=== PATIENT | male | born 1975 | race Caucasian/White ===

== ENCOUNTER → 2018-09-03 16:21 | Outpatient (CLI) | payer OTHER, SELFPAY ==
--- NOTE | 2018-09-03 16:26 | DI.RAD.S_ITS ---
PROCEDURE: XR HAND RT MIN 3V INDICATIONS: RIGHT HAND SWELLING/ BRUISING POST TRAUMA TECHNIQUE: 3 views of the hand(s) acquired. COMPARISON: None. FINDINGS: Bones: There is a subacute appearing appearance of slightly angulated distal fifth metacarpal fracture. Old fracture is noted within the fifth proximal phalanx. Soft tissues: No suspicious soft tissue calcifications. IMPRESSION: Mildly angulated distal fifth metacarpal fracture as above. Dictated by: Naya Powell M.D. on 09/03/2018 at 17:08 Approved by: Naya Powell M.D. on 09/03/2018 at 17:08
== END ==
PROVIDERS: PCP Family Medicine; Visit Provider Family Medicine
DX: S62.396A Other fracture of fifth metacarpal bone, right hand, initial encounter for closed fracture (principal); R22.31 Localized swelling, mass and lump, right upper limb
CPT/HCPCS: 73130

== ENCOUNTER 2019-09-18 09:46 | Emergency (ER) | payer OTHER, SELFPAY ==
[2019-09-18 09:58] VITALS: BP 173/118; PULSE 81; RESP 15; TEMP 36.9; O2SAT 96; BMI 33.9
--- NOTE | 2019-09-18 12:16 | DI.US.S_ITS ---
PROCEDURE: US LIMITED SOFT TISSUE COMPARISON: None. INDICATIONS: LEFT BUTTOCK MASS WITH REDNESS FINDINGS: Targeted Doppler and grayscale ultrasound of the left medial upper/superior buttock at the site of the patient's reported palpable focal left buttock mass was performed by an six pack loader operator. There is a 1.9 x 1.8 x 1.6 cm irregular indistinct heterogeneously hypoechoic area of soft tissue and fluid demonstrating increased internal and peripheral vascularity on Doppler ultrasound. No well-defined drainable abscess is identified. This is located below the skin surface with a possible thin tract to the overlying skin surface. IMPRESSION: 1.9 x 1.8 x 1.6 cm irregular indistinct vascular heterogeneous area of soft tissue and fluid within the left medial upper/superior buttock is most consistent with a cellulitis with associated phlegmon. No well-defined drainable abscess is identified. Recommend followup ultrasound in 4-8 weeks after clinical treatment to ensure that this irregular area of soft tissue resolves and to exclude an underlying mass/persistent pathology. Dictated by: Denny Esteban M.D. on 09/18/2019 at 14:41 Approved by: Denny Esteban M.D. on 09/18/2019 at 14:54
--- NOTE | 2019-09-18 13:02 | ED.SKABFB ---
HPI - Skin/Abscess/Foreign Bdy <DREW Leos - Last Filed: 09/18/19 21:03> General Chief complaint: Skin/Abscess/Foreign Body Stated complaint: abcess on butt Time Seen by Provider: 09/18/19 12:00 Source: patient Mode of arrival: Ambulatory Limitations: no limitations History of Present Illness HPI narrative: This is a 43-year-old male, prior smoker, presents to ED with left buttock pain, swelling which started 7 days ago. Patient reports significantly worsening pain and swelling for last 3 days. Patient denies fever, chills, vomiting. Patient endorses nausea. Patient reports clear yellow liquid has started draining since yesterday. Patient had similar lesions on his buttock in the past. Patient denies difficulty with bowel movement. Patient has been using Tylenol to self treat for pain and occasional warm packs. Reports pain increases with sitting and weight-bearing on affected site. Patient has a history of Crohn's diseases and psoriasis and takes Humira for these. Related Data Previous Rx's Medication Instructions Recorded doxycycline hyclate 100 mg PO BID 7 Days #14 cap 09/18/19 ondansetron 4 mg PO Q8H PRN #5 tab 09/18/19 Allergies Allergy/AdvReac Type Severity Reaction Status Date / Time No Known Drug Allergies Allergy Verified 09/18/19 09:58 Review of Systems <DREW Leos - Last Filed: 09/18/19 21:03> Review of Systems Narrative: General: Denies fever, chills, fatigue, malaise, sweats. HEENT: Denies sinus pain, ear pain, sore throat, difficulty swallowing, dizziness. Respiratory: Denies dyspnea, cough, wheezing, hemoptysis, sputum. Cardiovascular: Denies chest pain, palpitations, orthopnea, edema. Gastrointestinal: Reports nausea. Denies vomiting, abdominal pain, diarrhea, constipation, melena. : Denies dysuria, frequency, incontinence, hematuria, urinary retention. Musculoskeletal: Denies weakness, joint pain or bony pain. Skin: See HPI Neurologic: Denies weakness, headache, numbness, change in speech, confusion, seizures, incoordination. Psychiatric: No concerning psychosocial issues. 12-point review of systems is negative except for those stated above. Patient History <DREW Leos - Last Filed: 09/18/19 21:03> Surgical History History of resection of terminal ileum (Acute) Social History (Updated 09/18/19 @ 13:08 by DREW Leos) Smoking Status: Former smoker Substance Use Type: does not use Exam <DREW Leos - Last Filed: 09/18/19 21:03> Narrative Exam Narrative: General appearance: well developed, well nourished, in no acute distress. Head: normocephalic, atraumatic, no scalp lesions, non-tender. Eye: pupil equal, round. EOMI. Nose: nares patent. Oral: mucosa moist. Neck/Thyroid: neck supple, full range of motion, no visible masses. Heart: no clubbing, no cyanosis, no edema. Lungs: Breathing even and unlabored. No stridor. No accessory muscles used. Chest: normal shape and expansion. Abdomen: non-obese, non-distended. Neurologic: alert and oriented. Cognitive exam, CONDUIT BENDER and PNS grossly intact on informal exam. Psych: good eye contact, normal affect. Initial Vital Signs Initial Vital Signs: Vital Signs Temperature 98.5 F 09/18/19 09:58 Pulse Rate 81 09/18/19 09:58 Respiratory Rate 15 09/18/19 09:58 Blood Pressure 173/118 H 09/18/19 09:58 Pulse Oximetry 96 09/18/19 09:58 Skin General: erythema, No fluctuance, induration (about 7x7) and warm Lesions: lesion noted (Left buttock tissue) <Patricia Arriola MD - Last Filed: 09/20/19 07:01> Initial Vital Signs Initial Vital Signs: Vital Signs Temperature 98.5 F 09/18/19 09:58 Pulse Rate 81 09/18/19 09:58 Respiratory Rate 15 09/18/19 09:58 Blood Pressure 173/118 H 09/18/19 09:58 Pulse Oximetry 96 09/18/19 09:58 Course <DREW Leos - Last Filed: 09/18/19 21:03> Orders Ordered: Discontinued Medications Acetaminophen (Tylenol) 975 mg PO NOW ONE Stop: 09/18/19 13:42 Last Admin: 09/18/19 13:45 Dose: 975 mg Documented by: BTONER Ibuprofen (Advil) 800 mg PO NOW ONE Stop: 09/18/19 13:02 Last Admin: 09/18/19 13:22 Dose: Not Given Documented by: BTONER Ondansetron HCl (Zofran Odt) 4 mg SL NOW ONE Stop: 09/18/19 13:06 Last Admin: 09/18/19 13:22 Dose: 4 mg Documented by: BTONER Vital Signs Vital signs: Vital Signs - 8 hr 09/18/19 09:58 Temperature 98.5 F Pulse Rate 81 Respiratory Rate 15 Blood Pressure 173/118 H Pulse Oximetry 96 <Patricia Arriola MD - Last Filed: 09/20/19 07:01> Orders Ordered: Discontinued Medications Acetaminophen (Tylenol) 975 mg PO NOW ONE Stop: 09/18/19 13:42 Last Admin: 09/18/19 13:45 Dose: 975 mg Documented by: BTONER Ibuprofen (Advil) 800 mg PO NOW ONE Stop: 09/18/19 13:02 Last Admin: 09/18/19 13:22 Dose: Not Given Documented by: BTONER Ondansetron HCl (Zofran Odt) 4 mg SL NOW ONE Stop: 09/18/19 13:06 Last Admin: 09/18/19 13:22 Dose: 4 mg Documented by: BTONER Vital Signs Vital signs: Vital Signs - 8 hr 09/18/19 09:58 Temperature 98.5 F Pulse Rate 81 Respiratory Rate 15 Blood Pressure 173/118 H Pulse Oximetry 96 MDM - Skin/Abscess/Foreign Bdy <DREW Leos - Last Filed: 09/18/19 21:03> Differential Diagnosis Differential diagnosis: Likely abscess of skin or subcutaneous tissue and cellulitis Medical Records Attestation: I reviewed the patient's medical records. Imaging Data US-Soft tissue on L buttock: Radiologist's impression: [address] [address] Ultrasound Report Signed Patient: Italo Abreu KMR#: [id number] : 1975Acct:[id number] Age/Sex: 43 / MDate of Service: 09/18/19 Loc: ED Accession Number: [id number] Procedure: US drain soft tissue Ordering Provider: Ramírez Mason PROCEDURE: US LIMITED SOFT TISSUE COMPARISON: None. INDICATIONS: LEFT BUTTOCK MASS WITH REDNESS FINDINGS: Targeted Doppler and grayscale ultrasound of the left medial upper/superior buttock at the site of the patient's reported palpable focal left buttock mass was performed by an web page developer. There is a 1.9 x 1.8 x 1.6 cm irregular indistinct heterogeneously hypoechoic area of soft tissue and fluid demonstrating increased internal and peripheral vascularity on Doppler ultrasound. No well-defined drainable abscess is identified. This is located below the skin surface with a possible thin tract to the overlying skin surface. IMPRESSION: 1.9 x 1.8 x 1.6 cm irregular indistinct vascular heterogeneous area of soft tissue and fluid within the left medial upper/superior buttock is most consistent with a cellulitis with associated phlegmon. No well-defined drainable abscess is identified. Recommend followup ultrasound in 4-8 weeks after clinical treatment to ensure that this irregular area of soft tissue resolves and to exclude an underlying mass/persistent pathology. Dictated by: Denny Esteban M.D. on 09/18/2019 at 14:41 Approved by: Denny Esteban M.D. on 09/18/2019 at 14:54 [facility] Narrative Medical decision making narrative: This is a 43-year-old male who presents to ED with left buttock pain and swelling without constitutional symptoms. Patient reports onset of buttock lesion started 7 days ago which got worsened last 3 days. Ultrasound test was done due to no fluctuation and large induration on left buttock before attempted I and D per physical exam. Ultrasound showed no drainable abscess at this time. Patient advised continue to use warm pack and start doxycycline b.i.d. dose for next 7 days and discussed medication side effect such as GI symptoms and sun sensitivity. Return precautions were discussed with patient and patient advised to follow up with PCP next few days. Also patient advised to repeat ultrasound test 4-8 weeks after treatment to exclude underlying mass. Patient verbalized understanding and agrees with the treatment plan. Discharge Plan Departure Patient Disposition: Home Clinical Impression: Cellulitis and abscess of buttock Discharge Date/Time: 09/18/19 14:50 Instructions: DI for Cellulitis -- Adult, DI for Skin Abscess Activity Restrictions/Additional Instructions: You have been diagnosed with [cellulitis and abscess in left buttock. Abscess was not able to drain today. Ultrasound test shows no drainable abscess at this time and it is recommended to follow up with ultrasound in 4-8 weeks after the treatment]. What to do: *Take your medications as directed. Please continue with warm pack 4 times a day for 20-30 minutes. Please use barriers such as dry towel to avoid getting burn from it. Also, you can use warm soak in a bath tub. Please complete a course of antibiotic medications unless it gives you allergy reaction. *Follow up with your primary care provider in 2-3 days, call for an appointment. Let them know you were seen in the ED and that we asked you to be seen in follow up. *Return to ED if you have any new, worsening, or concerning symptoms, such as [chest pain, breathing difficulty, unable to tolerate fluids, feeling faint, high fever or any acute concerns]. Prescriptions: New doxycycline hyclate 100 mg capsule 100 mg PO BID 7 Days Qty: 14 RF: 0 ondansetron 4 mg tablet,disintegrating 4 mg PO Q8H PRN (Reason: nausea and vomiting) Qty: 5 RF: 0 Referrals: Ángel Warren MD [Primary Care Provider] -
[2019-09-18] MEDS: ONDANSETRON 4 MG ODT SL (13:22)
[2019-09-18] MEDS: ACETAMINOPHEN 325 MG TABLET 975 MG PO (13:45)
== END 2019-09-18 14:50 | disposition home or self-care (01) ==
PROVIDERS: Emergency Provider Nurse Practitioner Family; PCP Family Medicine
DX: L03.317 Cellulitis of buttock (principal); L02.31 Cutaneous abscess of buttock
CPT/HCPCS: 10030; 99282; 99283

== ENCOUNTER → 2020-05-14 14:03 | Outpatient (CLI) | payer OTHER, SELFPAY ==
[2020-05-16 18:44] LABS: COVID19 Sendout Not Detected (Not Detect)
== END ==
PROVIDERS: PCP Student in an Organized Health Care Education/Training Program; Visit Provider Physician Assistant
DX: Z11.59 Encounter for screening for other viral diseases (principal)
CPT/HCPCS: 87635

== ENCOUNTER → 2020-09-22 16:37 | Outpatient (CLI) | payer OTHER, SELFPAY ==
--- NOTE | 2020-09-22 16:40 | DI.US.S_ITS ---
PROCEDURE: US PERIPH VENOUS LOW EXTREM RT INDICATIONS: cellulitis right leg TECHNIQUE: Real-time imaging, as well as color and pulse Doppler interrogation, were performed of the lower extremity deep veins from the inguinal ligament to the popliteal fossa. COMPARISON: None. FINDINGS: The common femoral, femoral and popliteal veins are normally compressible, and free of intraluminal thrombus. Color and pulse Doppler demonstrate normal phasic intraluminal flow. There is normal augmentation response to distal compression maneuver. IMPRESSION: Negative for deep venous thrombosis. Dictated by: Charlie Rodas M.D. on 09/22/2020 at 17:38 Approved by: Charlie Rodas M.D. on 09/22/2020 at 17:39
--- NOTE | 2020-09-22 16:43 | DI.RAD.S_ITS ---
PROCEDURE: XR TIBIA FUBULA RT 2V INDICATIONS: CELLULITIS RIGHT LEG TECHNIQUE: 2 views of the tibia and fibula were acquired. COMPARISON: None. FINDINGS: Bones: No fractures or dislocations. No suspicious bony lesions. Soft tissues: No suspicious soft tissue calcifications or masses. No radiopaque foreign bodies. IMPRESSION: No focal osseous destruction to suggest advanced osteomyelitis. If there is persistent clinical concern, continued short interval radiographic followup or contrast enhanced MRI could be performed to assess for early infection. Dictated by: Martin Anne M.D. on 09/23/2020 at 9:16 Approved by: Martin Anne M.D. on 09/23/2020 at 9:17
[2020-09-22 18:53] LABS: Add Manual Diff / Slide Review NO; Basophils Absolute Auto 0 /uL (0-100); Basophils Percent Auto 0.7 % (0-2); Eosinophils Absolute Auto 100 /uL (0-450); Eosinophils Percent Auto 1.6 % (2-4); Hematocrit 43.5 % (41-53); Hemoglobin 14.7 g/dL (13.5-17.5); Lymphocytes Absolute Auto 1500 /uL (1100-4500); Lymphocytes Percent Auto 21.8 % (25-40); Mean Corpuscular HGB Conc 33.8 % (30-36); Mean Corpuscular Hemoglobin 28.7 PG (26-34); Monocytes Absolute Auto 700 /uL (0-900); Neutrophils Absolute Auto 4400 /uL (1500-7000); Neutrophils Percent Auto 64.9 % (50-75); Platelet Count 261 X10^3/uL (150-400); Red Blood Cell Count 5.12 X10^6/uL (4.5-5.9); Red Cell Distribution Width 12.6 % (11.6-14.8); White Blood Cell Count 6.8 X10^3/uL (4.5-11.0)
[2020-09-22 19:05] LABS: Alanine Aminotransferase 59 IU/L (<50); Albumin 4.3 g/dL (3.5-5.0); Albumin Globulin Ratio 1.2 (1.0-2.8); Alkaline Phosphatase 82 U/L (38-126); Aspartate Aminotransferase 33 IU/L (17-59); BUN Creatinine Ratio 21.4 (6-22); Bilirubin Total 0.8 mg/dL (0.2-1.3); Blood Urea Nitrogen 24 mg/dL (9-20); Calcium 9.4 mg/dL (8.4-10.2); Carbon Dioxide 31 mmol/L (22-32); Chloride 102 mmol/L (98-107); Estimated Glomerular Filt Rate > 60.0 mL/min (>60); Globulin 3.6 g/dL (1.7-4.1); Glucose 97 mg/dL (70-100); HEMOLYSIS < 15 (0-50); Potassium 4.4 mmol/L (3.4-5.1); Sodium 138 mmol/L (137-145); Total Protein 7.9 g/dL (6.3-8.2)
== END ==
PROVIDERS: Internal Medicine; PCP Student in an Organized Health Care Education/Training Program; Referring Provider Student in an Organized Health Care Education/Training Program; Visit Provider Student in an Organized Health Care Education/Training Program
DX: L03.115 Cellulitis of right lower limb (principal)
CPT/HCPCS: 36415; 73590; 80053; 85025; 93971

== ENCOUNTER 2022-02-21 09:03 | Emergency (ER) | payer OTHER, SELFPAY ==
[2022-02-21] VITALS (18 sets, daily range): BP systolic 143–192; BP diastolic 84–100; PULSE 81–96; RESP 13–22; TEMP 36.8; O2SAT 94–97; BMI 40.6
--- NOTE | 2022-02-21 09:08 | ED_ITS ---
HPI - Nausea/Vomiting/Diarrhea General Chief complaint: Skin/Abscess/Foreign Body Stated complaint: vomiting,possible cellulitis Time Seen by Provider: 02/21/22 09:05 History of Present Illness HPI Narrative: 46 Male former smoker with history of Crohn's and hypertension presents with si gnificant other and a chief complaint of poor appetite, nausea and vomiting with some lightheadedness for the past few days. He denies any pain, change in medications or diet. He denies exposure to other ill persons with similar symptoms. He states that he has developed a gradually worsening generalized headache over the past day or 2. He has been unable to keep much of anything down over that time frame. He started developing some chills and felt feverish over the course of yesterday and today and has noted a rapidly worsening infection and his left lower leg. Yesterday there was no redness or swelling and today he has significant redness and pain of his left lower extremity that is circumferential below the knee, he has a history of cellulitis states this feels similar. He denies any history of clot, recent injury or travel. Related Data Home Medications Medication Instructions Recorded Confirmed lisinopril 30 mg tablet 30 mg PO DAILY 03/31/20 03/31/20 sertraline 50 mg tablet 50 mg PO DAILY 03/31/20 03/31/20 Previous Rx's Medication Instructions Recorded ondansetron 4 mg disintegrating 4 mg PO Q8H PRN #5 tab 09/18/19 tablet cephalexin 500 mg capsule 500 mg PO Q6H 7 Days #28 cap 02/21/22 ketorolac 10 mg tablet 10 mg PO Q6H PRN #14 tab 02/21/22 ondansetron 4 mg disintegrating 4 mg PO TID-QID PRN #10 tab 02/21/22 tablet Allergies Allergy/AdvReac Type Severity Reaction Status Date / Time No Known Drug Allergies Allergy Verified 02/21/22 09:13 Review of Systems Review of Systems Narrative: GENERAL: See HPI HEENT: Denies sinus pain, ear pain, sore throat, difficulty swallowing, dizziness. RESPIRATORY: Denies dyspnea, cough, wheezing, hemoptysis, sputum. CARDIOVASCULAR: Denies chest pain, palpitations, orthopnea, edema, GASTROINTESTINAL: See HPI : Denies dysuria, frequency, incontinence, hematuria, urinary retention. MUSCULOSKELETAL: denies weakness, joint pain, or bony pain SKIN: See HPI NEUROLOGIC: Denies weakness, headache, numbness, change in speech, confusion, seizures, incoordination. PSYCHIATRIC: No concerning psychosocial issues. 12 point review of systems is negative except for those stated above Patient History Medical History (Updated 02/21/22 @ 13:59 by Maurice Plunkett DO) Cellulitis of back Crohn's colitis Depression Fatigue Insomnia Obstructive sleep apnea syndrome Psoriasis Skin abscess Snoring Surgical History History of resection of terminal ileum Family History Family/Other Dementia Father Loud snoring Restless legs Obesity Hypertension Depression Anxiety Alcohol abuse Mother Loud snoring Sleep apnea Restless legs Obesity Hypertension Depression Anxiety Social History Smoking Status: Former smoker Smoking Status: Former smoker Substance Use Type: does not use Exam Narrative Exam Narrative: GENERAL: [46 year old patient appears stated age. Well-developed patient, in mild distress. HEAD: Atraumatic. Normocephalic. EYES: Pupils equal round and reactive. Extraocular motions intact. No scleral icterus. No injection or drainage. ENT: Moist mucous membranes Nose without bleeding, purulent drainage. Throat without erythema, tonsillar hypertrophy or exudate. Airway patent. NECK: Trachea midline. Non tender, no meningeal signs CARDIOVASCULAR: Regular rate and rhythm without murmurs, gallops, or rubs. RESPIRATORY: Clear to auscultation. Breath sounds equal bilaterally. No wheezes, rales, or rhonchi. GASTROINTESTINAL: Abdomen soft, non-tender, nondistended. EXTREMITIES: No edema or joint tenderness. BACK: Nontender without deformity or crepitance. No flank tenderness. NEURO: AOx3. SKIN: Circumferential erythema with warmth and tenderness of most of left lower extremity below the knee, well-demarcated, no deep tenderness on palpation of the calf or medial thigh Initial Vital Signs Initial Vital Signs: Vital Signs Temperature 98.3 F 02/21/22 09:05 Pulse Rate 88 02/21/22 09:05 Respiratory Rate 18 02/21/22 09:05 Blood Pressure 168/100 H 02/21/22 09:05 Pulse Oximetry 97 02/21/22 09:05 Course Course Course Narrative: Though patient does have a slightly elevated bilirubin he has no pain on palpation of his epigastrium or right upper quadrant and denies any provocation with food. GB disease thought to be unlikely Orders Ordered: ED Orders 02/21/22 09:15 Complete Blood Count AUTO DIFF Stat Comprehensive Metabolic Panel Stat Lactate (Lactic Acid) Stat Lipase Stat Procalcitonin Stat 02/21/22 09:20 COVID19 -Nasal RAPID/Pre-Proc Stat 02/21/22 09:36 EKG-12 Lead Stat 02/21/22 10:01 Blood Culture Stat 02/21/22 10:18 US periph venous low extrem lt Stat 02/21/22 11:58 XR acute abdomen series Stat 02/21/22 12:04 Urine Microscopic Stat Discontinued Medications Acetaminophen (Acetaminophen 325 Mg Tablet) 650 mg PO NOW ONE Stop: 02/21/22 13:22 Last Admin: 02/21/22 13:26 Dose: 650 mg Documented by: SARAH Sodium Chloride (Normal Saline 0.9%) 1,000 mls @ 1,000 mls/hr IV BOLUS ONE Stop: 02/21/22 10:13 Last Infusion: 02/21/22 11:49 Dose: 0 mls/hr Documented by: Admin: 02/21/22 09:28 Dose: 1,000 mls/hr Documented by: PEDRO Ondansetron HCl (Ondansetron 4 Mg/2 Ml Inj) 4 mg IV NOW ONE Stop: 02/21/22 09:15 Last Admin: 02/21/22 09:28 Dose: 4 mg Documented by: PEDRO Vital Signs Vital signs: Vital Signs - 8 hr 02/21/22 09:05 02/21/22 09:07 02/21/22 09:08 Temperature 98.3 F Pulse Rate 88 88 Respiratory Rate 18 Blood Pressure 168/100 H 168/100 H Pulse Oximetry 97 95 97 02/21/22 09:30 02/21/22 10:00 02/21/22 10:30 Temperature Pulse Rate 81 83 82 Respiratory Rate 13 16 Blood Pressure 159/89 H Pulse Oximetry 95 96 97 02/21/22 11:00 02/21/22 11:30 02/21/22 11:39 Temperature Pulse Rate 82 81 90 Respiratory Rate 19 17 17 Blood Pressure 143/90 H Pulse Oximetry 97 95 95 02/21/22 12:00 02/21/22 12:28 Temperature Pulse Rate 84 88 Respiratory Rate 16 15 Blood Pressure 181/90 H Pulse Oximetry 95 94 MDM - Nausea/Vomiting/Diarrhea Lab Data Result diagrams: 02/21/22 09:15 02/21/22 09:15 Labs: Lab Results 02/21/22 02/21/22 02/21/22 Range/Units 09:15 09:15 09:15 WBC 13.1 H (4.5-11.0) X10^3/uL RBC 5.07 (4.5-5.9) X10^6/uL Hgb 14.5 (13.5-17.5) g/dL Hct 42.8 (41-53) % MCV 84.5 (80-100) fL MCH 28.6 (26-34) PG MCHC 33.8 (30-36) % RDW 13.7 (11.6-14.8) % Plt Count 235 (150-400) X10^3/uL Neut % (Auto) 82.2 H (50-75) % Lymph % (Auto) 8.7 L (25-40) % [place] % (Auto) 8.7 (3-14) % Eos % (Auto) 0.0 L (2-4) % Baso % (Auto) 0.4 (0-2) % Neut # (Auto) 94799 H (8977-8058) /uL Lymph # (Auto) 1100 (4060-0083) /uL [place] # (Auto) 1100 H (0-900) /uL Eos # (Auto) 0 (0-450) /uL Baso # (Auto) 0 (0-100) /uL Sodium 135 L (137-145) mmol/L Potassium 4.1 (3.4-5.1) mmol/L Chloride 100 (98-107) mmol/L Carbon Dioxide 29 (22-32) mmol/L BUN 18 (9-20) mg/dL Creatinine 1.15 (0.66-1.25) mg/dL Estimated GFR > 60 (>60) mL/min BUN/Creatinine Ratio 15.7 (6-22) Glucose 122 H (70-100) mg/dL Lactate 1.7 (0.7-2.1) mmol/L Calcium 9.0 (8.4-10.2) mg/dL Total Bilirubin 2.1 H (0.2-1.3) mg/dL AST 38 (17-59) IU/L ALT 44 (<50) IU/L Alkaline Phosphatase 72 (38-126) U/L Total Protein 8.9 H (6.3-8.2) g/dL Albumin 4.3 (3.5-5.0) g/dL Globulin 4.6 H (1.7-4.1) g/dL Albumin/Globulin Ratio 0.9 L (1.0-2.8) Lipase 71 (23-300) U/L Procalcitonin 0.62 H (<0.5) ng/mL Urine RBC (0-5/HPF) Urine WBC (0-5/HPF) Ur Squamous Epith Cells (0-5/HPF) Urine Bacteria (None) Ur Culture Indicated? SARS-CoV-2 (PCR) (Negative) 02/21/22 02/21/22 Range/Units 09:20 12:04 WBC (4.5-11.0) X10^3/uL RBC (4.5-5.9) X10^6/uL Hgb (13.5-17.5) g/dL Hct (41-53) % MCV (80-100) fL MCH (26-34) PG MCHC (30-36) % RDW (11.6-14.8) % Plt Count (150-400) X10^3/uL Neut % (Auto) (50-75) % Lymph % (Auto) (25-40) % [place] % (Auto) (3-14) % Eos % (Auto) (2-4) % Baso % (Auto) (0-2) % Neut # (Auto) (0811-9804) /uL Lymph # (Auto) (3296-3479) /uL [place] # (Auto) (0-900) /uL Eos # (Auto) (0-450) /uL Baso # (Auto) (0-100) /uL Sodium (137-145) mmol/L Potassium (3.4-5.1) mmol/L Chloride (98-107) mmol/L Carbon Dioxide (22-32) mmol/L BUN (9-20) mg/dL Creatinine (0.66-1.25) mg/dL Estimated GFR (>60) mL/min BUN/Creatinine Ratio (6-22) Glucose (70-100) mg/dL Lactate (0.7-2.1) mmol/L Calcium (8.4-10.2) mg/dL Total Bilirubin (0.2-1.3) mg/dL AST (17-59) IU/L ALT (<50) IU/L Alkaline Phosphatase (38-126) U/L Total Protein (6.3-8.2) g/dL Albumin (3.5-5.0) g/dL Globulin (1.7-4.1) g/dL Albumin/Globulin Ratio (1.0-2.8) Lipase (23-300) U/L Procalcitonin (<0.5) ng/mL Urine RBC None seen (0-5/HPF) Urine WBC None seen (0-5/HPF) Ur Squamous Epith Cells 5-10 /hpf H (0-5/HPF) Urine Bacteria None seen (None) Ur Culture Indicated? Cult not indicated SARS-CoV-2 (PCR) Negative (Negative) Urine Dip Bedside Urine Glucose Negative Bedside Urine Bilirubin - Negative Bedside Urine Ketone - Negative Urine Specific [place] 1.010 Bedside Urine Occult Blood +/- Bedside Urine pH 6.0 Bedside Urine Protein - Negative Bedside Urine Urobilinogen - Negative Bedside Urine Nitrite - Negative Bedside Urine Leukocytes - Negative Esterase Imaging Data US - DVT: Radiologist's Impression: Launch?[place] [address] Ultrasound Report Signed Patient: Italo Abreu MR#: [id number] : 1975 Acct:[id number] Age/Sex: 46 / M Date of Service: 02/21/22 Loc: ED Accession Number: [id number] ?? Procedure: US periph venous low extrem lt Ordering Provider: Maurice Plunkett D.O. PROCEDURE:? US PERIPH VENOUS LOW EXTREM LT ? INDICATIONS:? PAIN SWELLING AND REDNESS. NO INJURY. ? TECHNIQUE:? Real-time imaging, as well as color and pulse Doppler interrogation, were performed of the lower extremity deep veins from the inguinal ligament to the popliteal fossa.? ? COMPARISON:? None. ? FINDINGS:? The common femoral, femoral and popliteal veins are normally compressible, and free of intraluminal thrombus.? Color and pulse Doppler demonstrate normal phasic intraluminal flow.? There is normal augmentation response to distal compression maneuver. ? ? IMPRESSION:? No DVT in the left lower extremity. ? ? Dictated by: Betty Reid M.D. on 02/21/2022 at 11:16 ? ? Approved by: Betty Reid M.D. on 02/21/2022 at 11:17 ? Chest x-ray: Radiologist's Impression: Launch?Image [address] [address] [address] Scan Report Signed Patient: Argelia Youssef MR#: [id number] : 04/09/1937 Acct:[id number] Age/Sex: 84 / F Date of Service: 02/21/22 Loc: ED Accession Number: [id number] ?? Procedure: CT pelvis wo con Ordering Provider: Maurice Plunkett D.O. PROCEDURE:? CT PEL WO CON ? INDICATIONS:? severe pain after fall, L hip pain ? TECHNIQUE:? Noncontrast 3 mm axial sections acquired through the bony pelvis, with coronal and sagittal reformatting.? ? COMPARISON:? [facility], CR, XR PELVIS 1-2V, 02/21/2022, 10:26. ? FINDINGS:? Image quality:? Excellent.? ? Bones:? There is a minimally displaced left sacral ala fracture.? In addition, there are mildly displaced left superior and inferior pubic remote fractures.? No definitive proximal proximal femoral fractures. ? Grade 1 anterolisthesis of L4 on L5.? Moderate degenerative disc disease at L4- L5 and L5-S1.? Severe facet arthropathy at L4-L5 and L5-S1 bilaterally.? ? There is generalized osteopenia. ? Soft tissues:? Mild subcutaneous soft tissue contusions in the left buttock.? No soft tissue mass or hematoma.? A 2.2 cm presacral cyst is probably related to the ovary.? Moderate amount of stool in colon.? Moderate atherosclerotic calcifications of aorta and iliac arteries. ? ? IMPRESSION:? ? 1. Minimally displaced left sacral ala fracture. 2. Mildly displaced left superior and inferior pubic remote fractures. 3. No definitive proximal femoral fractures.? Because of osteopenia.? Subtle fractures may be difficult to visualize.? If clinical symptoms persist, a repeat examination is recommended. 4. Degenerative disc and facet disease in lumbar spine.? Dictated by: Shayy Joseph M.D. on 02/21/2022 at 11:40 ? ? Approved by: Shayy Joseph M.D. on 02/21/2022 at 11:51? [facility] Narrative Medical decision making narrative: Patient with reassuring history and physical exam, left lower extremity consistent with cellulitis. Ultrasound shows no evidence of clot. There is no evidence of abscess, vital signs are reassuring lactate less than 2, no signs of sepsis. Vomiting is controlled, he is tolerating oral hydration. Bilirubin is elevated but patient has no abdominal pain. No indication for admission or further evaluation at this time. Given extensive return precautions. Patient and understand and agree with the plan. They have had questions answered to their apparent satisfaction. Discharge Plan Departure Patient Disposition: Home Clinical Impression: Vomiting, Cellulitis of left leg Instructions: DI for Cellulitis -- Adult Activity Restrictions/Additional Instructions: *You have been diagnosed with [cellulitis of left leg and vomiting. As we discussed your history and physical exam are reassuring as are your labs. Ultrasound shows no evidence of clot and x-ray showed no pneumonia or bowel obstruction. *What to do: *Please continue to take your regular medications as directed. [x ] New medication prescriptions sent to your pharmacy: [[facility] ] [ ] New medication written as a paper prescription [ ] No new medications given *Please follow up with your primary care provider in 2-3 days, call for an appointment. Let them know you were seen in the Emergency Department and that we ask that you be seen in follow up. We will electronically transmit a record of today's note if your PCP is in our system * please consider a clear liquid diet for the next 1-2 days and be sure you weight at least 30 minutes to eat or drink after taking Zofran to allow to kick in. *Return to Emergency Department if you should have any new, worsening or concerning symptoms, such as [fever greater than 101 F, shaking chills, worsening pain, persistent vomiting or other bothersome symptoms] Prescriptions: New ketorolac 10 mg tablet 10 mg PO Q6H PRN (Reason: pain) Qty: 14 0RF cephalexin 500 mg capsule 500 mg PO Q6H 7 Days Qty: 28 0RF ondansetron 4 mg tablet,disintegrating 4 mg PO TID-QID PRN (Reason: nausea and vomiting) Qty: 10 0RF No Action ondansetron 4 mg tablet,disintegrating 4 mg PO Q8H PRN (Reason: nausea and vomiting) Qty: 5 0RF lisinopril 30 mg tablet 30 mg PO DAILY 0RF sertraline 50 mg tablet 50 mg PO DAILY 0RF Referrals: Lilliam Coy MD [Primary Care Provider] -
[2022-02-21 09:27] LABS: Add Manual Diff / Slide Review NO; Basophils Absolute Auto 0 /uL (0-100); Basophils Percent Auto 0.4 % (0-2); Eosinophils Absolute Auto 0 /uL (0-450); Hematocrit 42.8 % (41-53); Hemoglobin 14.5 g/dL (13.5-17.5); Lymphocytes Absolute Auto 1100 /uL (1100-4500); Lymphocytes Percent Auto 8.7 % (25-40); Mean Corpuscular HGB Conc 33.8 % (30-36); Mean Corpuscular Hemoglobin 28.6 PG (26-34); Mean Corpuscular Volume 84.5 fL (80-100); Monocytes Absolute Auto 1100 /uL (0-900); Monocytes Percent Auto 8.7 % (3-14); Neutrophils Absolute Auto 10800 /uL (1500-7000); Neutrophils Percent Auto 82.2 % (50-75); Platelet Count 235 X10^3/uL (150-400); Red Blood Cell Count 5.07 X10^6/uL (4.5-5.9); Red Cell Distribution Width 13.7 % (11.6-14.8); White Blood Cell Count 13.1 X10^3/uL (4.5-11.0)
[2022-02-21] MEDS: ONDANSETRON 4 MG/2 ML INJ IV (09:28)
[2022-02-21] MEDS: SODIUM CHLORIDE 0.9% 1,000 ML 1000 ML IV (09:28)
[2022-02-21 09:39] LABS: Lactate (Lactic Acid) 1.7 mmol/L (0.7-2.1)
[2022-02-21 09:40] LABS: Alanine Aminotransferase 44 IU/L (<50); Albumin 4.3 g/dL (3.5-5.0); Albumin Globulin Ratio 0.9 (1.0-2.8); Alkaline Phosphatase 72 U/L (38-126); Aspartate Aminotransferase 38 IU/L (17-59); BUN Creatinine Ratio 15.7 (6-22); Bilirubin Total 2.1 mg/dL (0.2-1.3); Blood Urea Nitrogen 18 mg/dL (9-20); Carbon Dioxide 29 mmol/L (22-32); Chloride 100 mmol/L (98-107); Estimated Glomerular Filt Rate > 60 mL/min (>60); Globulin 4.6 g/dL (1.7-4.1); Glucose 122 mg/dL (70-100); HEMOLYSIS < 15 (0-50); Lipase 71 U/L (23-300); Potassium 4.1 mmol/L (3.4-5.1); Sodium 135 mmol/L (137-145); Total Protein 8.9 g/dL (6.3-8.2)
[2022-02-21 09:56] LABS: Procalcitonin 0.62 ng/mL (<0.5)
[2022-02-21 10:11] LABS: COVID19 -Nasal RAPID Negative (Negative)
--- NOTE | 2022-02-21 10:18 | DI.US.S_ITS ---
PROCEDURE: US PERIPH VENOUS LOW EXTREM LT INDICATIONS: PAIN SWELLING AND REDNESS. NO INJURY. TECHNIQUE: Real-time imaging, as well as color and pulse Doppler interrogation, were performed of the lower extremity deep veins from the inguinal ligament to the popliteal fossa. COMPARISON: None. FINDINGS: The common femoral, femoral and popliteal veins are normally compressible, and free of intraluminal thrombus. Color and pulse Doppler demonstrate normal phasic intraluminal flow. There is normal augmentation response to distal compression maneuver. IMPRESSION: No DVT in the left lower extremity. Dictated by: Betty Reid M.D. on 02/21/2022 at 11:16 Approved by: Betty Reid M.D. on 02/21/2022 at 11:17
--- NOTE | 2022-02-21 11:58 | DI.RAD.S_ITS ---
PROCEDURE: XR ACUTE ABDOMEN SERIES INDICATIONS: fever, vomiting TECHNIQUE: One view chest and two views of the abdomen were acquired. COMPARISON: None. FINDINGS: Surgical changes and devices: None. Chest: Heart size is normal. No consolidation, pleural effusion, or pneumothorax. No pneumoperitoneum. Eventration of the right diaphragm. Abdomen: Bowel gas pattern is normal. No suspicious calcifications. Visualized solid organ contours appear normal. Bones: No suspicious bony lesions. Prominence of the bilateral femoral neck/head junctions. IMPRESSION: No acute abnormality. Dictated by: Manjit Araujo M.D. on 02/21/2022 at 13:00 Approved by: Manjit Araujo M.D. on 02/21/2022 at 13:01
[2022-02-21 12:52] LABS: RBC Urine None Seen (0-5/HPF); Squamous Epithelial Cell Urine 5-10 /HPF (0-5/HPF); WBC Urine None Seen (0-5/HPF)
[2022-02-21 12:53] LABS: Bacteria Urine None Seen; Culture Indicated Urine Cult Not Indicated
[2022-02-21] MEDS: ACETAMINOPHEN 325 MG TABLET 650 MG PO (13:26)
== END 2022-02-21 14:10 | disposition home or self-care (01) ==
PROVIDERS: Emergency Provider Emergency Medicine; PCP Student in an Organized Health Care Education/Training Program
DX: R11.2 Nausea with vomiting, unspecified (principal); L03.116 Cellulitis of left lower limb; E80.7 Disorder of bilirubin metabolism, unspecified; Z20.822 Contact with and (suspected) exposure to COVID-19
CPT/HCPCS: 36415; 74022; 80053; 81003; 81015; 83605; 83690; 84145; 85025; 87040; 87635; 93005; 93971; 96361; 96374; 99284; C9803; J2405

== ENCOUNTER → 2022-02-28 16:25 | Outpatient (CLI) | payer OTHER, SELFPAY ==
[2022-02-28 16:52] LABS: Add Manual Diff / Slide Review NO; Basophils Absolute Auto 100 /uL (0-100); Basophils Percent Auto 1.3 % (0-2); Eosinophils Absolute Auto 200 /uL (0-450); Eosinophils Percent Auto 3.2 % (2-4); Hematocrit 40.7 % (41-53); Hemoglobin 14.1 g/dL (13.5-17.5); Lymphocytes Absolute Auto 2100 /uL (1100-4500); Lymphocytes Percent Auto 30.4 % (25-40); Mean Corpuscular HGB Conc 34.5 % (30-36); Mean Corpuscular Volume 83.9 fL (80-100); Monocytes Absolute Auto 600 /uL (0-900); Monocytes Percent Auto 8.7 % (3-14); Neutrophils Absolute Auto 3900 /uL (1500-7000); Neutrophils Percent Auto 56.4 % (50-75); Platelet Count 380 X10^3/uL (150-400); Red Blood Cell Count 4.85 X10^6/uL (4.5-5.9); Red Cell Distribution Width 13.8 % (11.6-14.8)
[2022-02-28 17:23] LABS: C-Reactive Protein Quant 1.3 mg/dL (<1.0)
[2022-02-28 18:56] LABS: Erythrocyte Sedimentation Rate 39 MM/HR (0-15)
== END ==
PROVIDERS: PCP Student in an Organized Health Care Education/Training Program; Referring Provider Family Medicine; Visit Provider Family Medicine
DX: L08.9 Local infection of the skin and subcutaneous tissue, unspecified (principal)
CPT/HCPCS: 36415; 85025; 85651; 86140

== ENCOUNTER → 2023-01-27 16:13 | Outpatient (ROUT) | payer OTHER, SELFPAY ==
[2023-01-27 17:39] LABS: Influenza A - CEPHEID Flu A NEGATIVE (NEGATIVE); Influenza B - CEPHEID Flu B NEGATIVE (NEGATIVE); Respiratory Syncytial Virus Negative (Negative)
[2023-01-27 17:43] LABS: COVID-19 CEPHEID 4-PLEX PCR Negative (Negative)
== END ==
PROVIDERS: PCP Student in an Organized Health Care Education/Training Program; Visit Provider Family Medicine
DX: J06.9 Acute upper respiratory infection, unspecified (principal)
CPT/HCPCS: 0241U

== ENCOUNTER 2023-11-15 10:30 | Emergency (ER) | payer OTHER, SELFPAY ==
[2023-11-15 10:34] VITALS: BP 190/109; PULSE 91; RESP 15; TEMP 36.2; O2SAT 96; BMI 39.9
--- NOTE | 2023-11-15 10:36 | DI.RAD.S_ITS ---
PROCEDURE: XR WRIST LT MIN 3V INDICATIONS: wrist pain TECHNIQUE: 4 views of the wrist were acquired. COMPARISON: [facility], , WRIST MINIMUM 3 VIEWS LEFT, 12/16/2016, 10:06. FINDINGS: Bones: No fractures or dislocations. No suspicious bony lesions. Soft tissues: No suspicious soft tissue calcifications. IMPRESSION: No acute fracture. No osseous lesion. If symptoms and/or clinical suspicion for pathology persist, further assessment with repeat, or advanced imaging (e.g., CT, MRI, or bone scan) may be helpful for further assessment. Dictated by: Marisol Chanel M.D. on 11/15/2023 at 11:37 Approved by: Marisol Chanel M.D. on 11/15/2023 at 11:38
[2023-11-15 12:03] VITALS: BP 176/110; PULSE 75; RESP 12; O2SAT 99
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
== END 2023-11-15 12:04 | disposition home or self-care (01) ==
PROVIDERS: Emergency Provider Physician Assistant; PCP Student in an Organized Health Care Education/Training Program
DX: M25.532 Pain in left wrist (principal); W01.0XXA Fall on same level from slipping, tripping and stumbling without subsequent striking against object, initial encounter
CPT/HCPCS: 29125; 29260; 73110; 99282; 99283

== ENCOUNTER → 2023-12-08 12:46 | Outpatient (CLI) | payer OTHER, SELFPAY ==
--- NOTE | 2023-12-08 12:48 | DI.CT.S_ITS ---
PROCEDURE: CT UE LT WO CON INDICATIONS: Pain in left wrist TECHNIQUE: Noncontrast 1 mm axial sections acquired through the carpal bones, with coronal and sagittal reformats. COMPARISON: [facility], CR, XR WRIST LT MIN 3V, 11/15/2023, 10:53. [facility], CR, XR WRIST 3+ VIEWS LEFT, 11/22/2023, 10:59. FINDINGS: Image quality: Excellent. Bones: No acute osseous fracture or dislocation. No suspicious intraosseous lesion. Carpal bones are normally aligned. There is mild negative ulnar variance. No signs of osteonecrosis. Minimal degenerative spurring of the 1st metacarpal base. Soft tissues: Small radiocarpal effusion. The articular cartilages, ligaments, tendons are not well evaluated with CT. The visualized musculature is normal in bulk. IMPRESSION: No acute osseous abnormality. Small radiocarpal effusion. Approved by: Lowell Kolb M.D. on 12/08/2023 at 16:20
== END ==
PROVIDERS: PCP Student in an Organized Health Care Education/Training Program; Referring Provider Physician Assistant Medical; Visit Provider Physician Assistant Medical
DX: M25.532 Pain in left wrist (principal); M25.432 Effusion, left wrist
CPT/HCPCS: 73200

== ENCOUNTER 2024-04-25 09:19 | Emergency (ER) | payer OTHER, SELFPAY ==
[2024-04-25] VITALS (9 sets, daily range): BP systolic 154–175; BP diastolic 86–95; PULSE 78–99; RESP 17; TEMP 36.8–37; O2SAT 95–97; BMI 38.0
[2024-04-25 09:54] LABS: Add Manual Diff / Slide Review NO; Basophils Absolute Auto 0 /uL (0-100); Basophils Percent Auto 0.7 % (0-2); Eosinophils Absolute Auto 100 /uL (0-450); Eosinophils Percent Auto 1.4 % (2-4); Hematocrit 40.9 % (41-53); Hemoglobin 13.7 g/dL (13.5-17.5); Lymphocytes Absolute Auto 800 /uL (1100-4500); Lymphocytes Percent Auto 18.3 % (25-40); Mean Corpuscular HGB Conc 33.5 % (30-36); Mean Corpuscular Volume 80.7 fL (80-100); Monocytes Absolute Auto 800 /uL (0-900); Monocytes Percent Auto 18.9 % (3-14); Neutrophils Absolute Auto 2700 /uL (1500-7000); Neutrophils Percent Auto 60.7 % (50-75); Platelet Count 311 X10^3/uL (150-400); Red Blood Cell Count 5.08 X10^6/uL (4.5-5.9); White Blood Cell Count 4.4 X10^3/uL (4.5-11.0)
[2024-04-25] MEDS: SODIUM CHLORIDE 0.9% 1,000 ML 1000 ML IV (10:02)
[2024-04-25 10:06] LABS: INR 1.1 (0.9-1.3); Prothrombin Time 13.1 SECONDS (9.4-12.5)
[2024-04-25 10:09] LABS: PTT Partial Thromboplastin Tim 36 SECONDS (25.1-36.5)
[2024-04-25 10:10] LABS: Alanine Aminotransferase 20 IU/L (<50); Albumin 4.2 g/dL (3.5-5.0); Alkaline Phosphatase 83 U/L (38-126); Aspartate Aminotransferase 24 IU/L (17-59); BUN Creatinine Ratio 18.4 (6-22); Bilirubin Total 1.2 mg/dL (0.2-1.3); Blood Urea Nitrogen 19 mg/dL (9-20); Calcium 8.6 mg/dL (8.4-10.2); Carbon Dioxide 30 mmol/L (22-32); Chloride 104 mmol/L (98-107); Estimated Glomerular Filt Rate > 60 mL/min (>60); Globulin 4.4 g/dL (1.7-4.1); Glucose 117 mg/dL (70-100); HEMOLYSIS < 15 (0-50); Lipase 76 U/L (23-300); Sodium 139 mmol/L (137-145); Total Protein 8.6 g/dL (6.3-8.2)
[2024-04-25 10:11] LABS: Lactate (Lactic Acid) 0.8 mmol/L (0.7-2.1)
[2024-04-25 10:28] LABS: Procalcitonin 0.092 ng/mL (<0.5)
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
[2024-04-25] MEDS: ACETAMINOPHEN 325 MG TABLET 650 MG PO (12:01)
[2024-04-25] MEDS: KETOROLAC 30 MG/ML VIAL 15 MG IV (12:01)
== END 2024-04-25 12:20 | disposition home or self-care (01) ==
PROVIDERS: Emergency Provider Emergency Medicine; PCP Student in an Organized Health Care Education/Training Program
DX: B02.9 Zoster without complications (principal)
CPT/HCPCS: 36415; 80053; 83605; 83690; 84145; 85025; 85610; 85730; 87040; 96374; 99284; J1885

== ENCOUNTER 2024-05-11 10:26 | Emergency (ER) | payer OTHER, SELFPAY ==
[2024-05-11 10:30] VITALS: BP 148/88; PULSE 79; RESP 16; TEMP 37; O2SAT 99; BMI 38.6
--- NOTE | 2024-05-11 11:01 | ED.SKABFB ---
HPI - Skin/Abscess/Foreign Bdy General Chief complaint: Skin/Abscess/Foreign Body Stated complaint: infection L calf Time Seen by Provider: 05/11/24 10:54 Source: patient Mode of arrival: Family Vehicle Limitations: no limitations History of Present Illness HPI narrative: 48-year-old male with history of hypertension, dyslipidemia, Crohn's disease on Humira with recent shingles outbreak who presents with complaint of infection in his left calf. Patient has a small wound center he states he has not sure how the ended up there but developed redness swelling and discomfort that is spread over the last 3 days. He denies any fevers or chills. No chest pain or shortness of breath, no nausea or vomiting no other GI or urinary symptoms. States he has had MRSA in the past. States he has not taken his most recent Humira injection on Monday because he was on acyclovir for shingles in the last week and then developed this new change. Patient has had prior colon resection for his Crohn's disease. Former smoker, occasional alcohol, no recreational or injection drugs. Dr. Shrestha is his primary care physician. Related Data Home Medications Medication Instructions Recorded Confirmed lisinopril 30 mg tablet 30 mg PO DAILY 03/31/20 04/25/24 sertraline 50 mg tablet 50 mg PO DAILY 03/31/20 03/31/20 amlodipine 10 mg tablet 10 mg PO DAILY 04/25/24 04/25/24 Previous Rx's Medication Instructions Recorded ondansetron 4 mg disintegrating 4 mg PO Q8H PRN nausea and 09/18/19 tablet vomiting #5 tabs ketorolac 10 mg tablet 10 mg PO Q6H PRN pain #14 tabs 02/21/22 ondansetron 4 mg disintegrating 4 mg PO TID-QID PRN nausea and 02/21/22 tablet vomiting #10 tabs acyclovir 800 mg tablet 800 mg PO 5XD #35 tabs 04/25/24 gabapentin 300 mg capsule 300 mg PO BEDTIME #30 caps 04/25/24 hydrocodone 5 mg-acetaminophen 325 1 tab PO Q6H PRN pain #20 tabs 04/25/24 mg tablet prednisone 20 mg tablet 40 mg (2 x 20 mg) PO DAILY #10 tabs 04/25/24 doxycycline hyclate 100 mg tablet 100 mg PO BID #20 tabs 05/11/24 Allergies Allergy/AdvReac Type Severity Reaction Status Date / Time aripiprazole [From Abilify] Allergy Verified 05/11/24 10:57 Review of Systems Review of Systems ROS Unobtainable: All systems reviewed & are unremarkable except as noted in HPI and below Patient History Medical History (Updated 05/11/24 @ 11:14 by Makeda French DO) Snoring Obstructive sleep apnea syndrome Fatigue Insomnia Crohn's colitis Depression Psoriasis Cellulitis of back Skin abscess Surgical History History of resection of terminal ileum Family History Family/Other Dementia Father Loud snoring Restless legs Obesity Hypertension Depression Anxiety Alcohol abuse Mother Loud snoring Sleep apnea Restless legs Obesity Hypertension Depression Anxiety Social History Smoking Status: Former smoker Smoking Status: Former smoker alcohol intake frequency: holidays/special occasions only Substance Use Type: does not use Exam Narrative Exam Narrative: GENERAL: Alert and oriented x three, well-appearing male in mild distress. HEENT: Head normocephalic, atraumatic, EOMI, pupils reactive, face symmetric, moist mucous membranes NECK: Supple, full range of motion CARDIOVASCULAR: Regular rate and rhythm without murmurs, rubs or gallops. RESPIRATORY: Breath sounds equal bilaterally, no wheezes rales or rhonchi. ABDOMEN: Soft, nontender. Normoactive bowel sounds all 4 quadrants. No guarding or rebound, rigidity, no mass : No CVA tenderness EXTREMITIES: Normal range of motion, no clubbing or edema. Neurovascularly intact. Patient has a appears to be a small ulceration that is scabbed over on the left posterior calf, there has an area of about 10 cm x 8 cm of erythema with induration, no fluctuance. Area is tender to touch it is warm. No blistering. No vesicles. The left and right lower extremity or otherwise same size there is no extension into the foot. Patient has 2+ dorsalis pedis. Normal sensation throughout. NEUROLOGICAL: Cranial nerves II through XII grossly intact. Moving all extremities SKIN: Warm, dry, no petechiae, no rashes or lesions otherwise noted. Initial Vital Signs Initial Vital Signs: Vital Signs Temperature 98.6 F 05/11/24 10:30 Pulse Rate 79 05/11/24 10:30 Respiratory Rate 16 05/11/24 10:30 Blood Pressure 148/88 H 05/11/24 10:30 Pulse Oximetry 99 05/11/24 10:30 Oxygen Delivery Method Room Air 05/11/24 10:30 Course Orders Ordered: ED Orders 05/11/24 11:08 CBC Auto Diff [Complete Blood Count AUTO DIFF] Stat CMP [Comprehensive Metabolic Panel] Stat Lactate (Lactic Acid) Stat 05/11/24 11:17 Blood Culture Stat Discontinued Medications Doxycycline Hyclate (Doxycycline Hyclate 100 Mg Tablet) 100 mg PO NOW ONE Stop: 05/11/24 11:14 Last Admin: 05/11/24 11:26 Dose: 100 mg Documented By: MARTIN Ketorolac Tromethamine (Ketorolac 30 Mg/Ml Vial) 15 mg IV NOW ONE Stop: 05/11/24 11:15 Last Admin: 05/11/24 11:26 Dose: 15 mg Documented By: MARTNI Vital Signs Vital signs: Vital Signs - 8 hr 05/11/24 10:30 05/11/24 11:08 05/11/24 11:09 Temperature 98.6 F Pulse Rate 79 80 Respiratory Rate 16 15 Blood Pressure 148/88 H 153/86 H Pulse Oximetry 99 98 Oxygen Delivery Method Room Air 05/11/24 11:09 05/11/24 11:30 05/11/24 12:00 Temperature Pulse Rate 80 73 70 Respiratory Rate Blood Pressure Pulse Oximetry 98 98 96 Oxygen Delivery Method Room Air 05/11/24 12:18 Temperature Pulse Rate 73 Respiratory Rate 17 Blood Pressure 163/90 H Pulse Oximetry 97 Oxygen Delivery Method Room Air MDM - Skin/Abscess/Foreign Bdy Lab Data 05/11/24 11:08 05/11/24 11:08 Labs: Lab Results 05/11/24 Range/Units 11:08 WBC 7.6 (4.5-11.0) X10^3/uL RBC 4.80 (4.5-5.9) X10^6/uL Hgb 13.0 L (13.5-17.5) g/dL Hct 39.0 L (41-53) % MCV 81.3 (80-100) fL MCH 27.0 (26-34) PG MCHC 33.2 (30-36) % RDW 14.8 (11.6-14.8) % Plt Count 308 (150-400) X10^3/uL Neut % (Auto) 59.9 (50-75) % Lymph % (Auto) 26.2 (25-40) % [place] % (Auto) 10.9 (3-14) % Eos % (Auto) 2.1 (2-4) % Baso % (Auto) 0.9 (0-2) % Neut # (Auto) 4600 (1343-9872) /uL Lymph # (Auto) 2000 (4458-1589) /uL [place] # (Auto) 800 (0-900) /uL Eos # (Auto) 200 (0-450) /uL Baso # (Auto) 100 (0-100) /uL Sodium 137 (137-145) mmol/L Potassium 4.2 (3.4-5.1) mmol/L Chloride 104 (98-107) mmol/L Carbon Dioxide 32 (22-32) mmol/L BUN 17 (9-20) mg/dL Creatinine 0.84 (0.66-1.25) mg/dL Estimated GFR > 60 (>60) mL/min BUN/Creatinine Ratio 20.2 (6-22) Glucose 105 H (70-100) mg/dL Lactate 1.1 (0.7-2.1) mmol/L Calcium 8.9 (8.4-10.2) mg/dL Total Bilirubin 0.6 (0.2-1.3) mg/dL AST 20 (17-59) IU/L ALT 23 (<50) IU/L Alkaline Phosphatase 80 (38-126) U/L Total Protein 7.6 (6.3-8.2) g/dL Albumin 3.7 (3.5-5.0) g/dL Globulin 3.9 (1.7-4.1) g/dL Albumin/Globulin Ratio 0.9 L (1.0-2.8) MDM Narrative Medical decision making narrative: 48-year-old with a appropriate vitals, does not appear to be septic. Does have what appears to be cellulitis from likely small wound on his posterior calf. Does have a history of being on Humira for Crohn's disease so blood cultures and labs were obtained. Labs show 7.6, hemoglobin of 13 platelets of 308. INR 1.1 electrolytes are otherwise appropriate renal functions normal glucose is 105. Lactate is negative. Blood cultures are pending. There is a small ulceration but no fluids so culture was not obtained none in his able to be excreted even with palpation. Plan to start patient on oral antibiotic, patient has had MRSA in the past reportedly. We will treat with doxycycline. Discussed strict return precautions. Patient was marked here in the department. Discharge Plan Departure Patient Disposition: Home Clinical Impression: Cellulitis of left leg Instructions: DI for Cellulitis -- Adult Activity Restrictions/Additional Instructions: Follow up for recheck in the next several days as needed. Take oral antibiotics until completed. Take 1 tablet every 12 hours. Prescription sent to [facility] in [place]. You can take Tylenol up to a 1000 mg every 6 hours and/or ibuprofen up to 600 mg every 6 hours as needed for pain. Please return for fevers, increasing redness or swelling or pain, redness extending more than 1 or 2 cm beyond the line of demarcation, new purulent drainage, lightheadedness or passing out, chest pain or shortness of breath, persistent vomiting or other new or concerning changes. Prescriptions: New doxycycline hyclate 100 mg tablet 100 mg PO BID Qty: 20 0RF No Action ondansetron 4 mg tablet,disintegrating 4 mg PO Q8H PRN (Reason: nausea and vomiting) Qty: 5 0RF amlodipine 10 mg tablet 10 mg PO DAILY hydrocodone-acetaminophen 5-325 mg tablet 1 tab PO Q6H PRN (Reason: pain) Qty: 20 0RF prednisone 20 mg tablet 40 mg PO DAILY Qty: 10 0RF acyclovir 800 mg tablet 800 mg PO 5XD Qty: 35 0RF Rx Instructions: space evenly during waking hours gabapentin 300 mg capsule 300 mg PO BEDTIME Qty: 30 0RF ketorolac 10 mg tablet 10 mg PO Q6H PRN (Reason: pain) Qty: 14 0RF ondansetron 4 mg tablet,disintegrating 4 mg PO TID-QID PRN (Reason: nausea and vomiting) Qty: 10 0RF lisinopril 30 mg tablet 30 mg PO DAILY sertraline 50 mg tablet 50 mg PO DAILY Referrals: Stephenie Shrestha MD [Physician] - Stand Alone Forms: Patient Portal/API
[2024-05-11 11:08] VITALS: PULSE 80; O2SAT 98
[2024-05-11 11:09] VITALS: BP 153/86; PULSE 80; RESP 15; O2SAT 98
[2024-05-11 11:20] LABS: Add Manual Diff / Slide Review NO; Basophils Absolute Auto 100 /uL (0-100); Basophils Percent Auto 0.9 % (0-2); Eosinophils Absolute Auto 200 /uL (0-450); Eosinophils Percent Auto 2.1 % (2-4); Lymphocytes Absolute Auto 2000 /uL (1100-4500); Lymphocytes Percent Auto 26.2 % (25-40); Mean Corpuscular HGB Conc 33.2 % (30-36); Mean Corpuscular Volume 81.3 fL (80-100); Monocytes Absolute Auto 800 /uL (0-900); Monocytes Percent Auto 10.9 % (3-14); Neutrophils Absolute Auto 4600 /uL (1500-7000); Neutrophils Percent Auto 59.9 % (50-75); Platelet Count 308 X10^3/uL (150-400); Red Cell Distribution Width 14.8 % (11.6-14.8); White Blood Cell Count 7.6 X10^3/uL (4.5-11.0)
[2024-05-11] MEDS: DOXYCYCLINE HYCLATE 100 MG TABLET PO (11:26)
[2024-05-11] MEDS: KETOROLAC 30 MG/ML VIAL 15 MG IV (11:26)
[2024-05-11 11:30] VITALS: PULSE 73; O2SAT 98
[2024-05-11 11:32] LABS: Alanine Aminotransferase 23 IU/L (<50); Albumin 3.7 g/dL (3.5-5.0); Albumin Globulin Ratio 0.9 (1.0-2.8); Alkaline Phosphatase 80 U/L (38-126); Aspartate Aminotransferase 20 IU/L (17-59); BUN Creatinine Ratio 20.2 (6-22); Bilirubin Total 0.6 mg/dL (0.2-1.3); Blood Urea Nitrogen 17 mg/dL (9-20); Calcium 8.9 mg/dL (8.4-10.2); Carbon Dioxide 32 mmol/L (22-32); Chloride 104 mmol/L (98-107); Estimated Glomerular Filt Rate > 60 mL/min (>60); Globulin 3.9 g/dL (1.7-4.1); Glucose 105 mg/dL (70-100); HEMOLYSIS < 15 (0-50); Potassium 4.2 mmol/L (3.4-5.1); Sodium 137 mmol/L (137-145); Total Protein 7.6 g/dL (6.3-8.2)
[2024-05-11 11:33] LABS: Lactate (Lactic Acid) 1.1 mmol/L (0.7-2.1)
[2024-05-11 12:00] VITALS: PULSE 70; O2SAT 96
[2024-05-11 12:18] VITALS: BP 163/90; PULSE 73; RESP 17; O2SAT 97
== END 2024-05-11 12:23 | disposition home or self-care (01) ==
PROVIDERS: Emergency Provider Emergency Medicine; PCP Student in an Organized Health Care Education/Training Program
DX: L03.116 Cellulitis of left lower limb (principal); Z86.14 Personal history of Methicillin resistant Staphylococcus aureus infection
CPT/HCPCS: 80053; 83605; 85025; 87040; 96374; 99284; J1885

== ENCOUNTER 2024-09-01 00:15 | Inpatient (IN) | payer OTHER, SELFPAY ==
[2024-09-01] VITALS (12 sets, daily range): BP systolic 122–145; BP diastolic 66–90; PULSE 73–104; RESP 16–20; TEMP 35.8–37.1; O2SAT 92–98; BMI 37.8; BMI 38.0
--- NOTE | 2024-09-01 00:26 | DI.RAD.S_ITS ---
PROCEDURE: XR TIBIA FIBULA LT 2V INDICATIONS: WORSENING LLE SOFT TISSUE INFECTION TECHNIQUE: 2 views of the tibia and fibula were acquired. COMPARISON: [facility], CR, XR TIBIA FIBULA RT 2V, 09/22/2020, 16:46. (Additional prior imaging is not available for review from the archive at the time of this dictation.) FINDINGS: Bones: No fractures or dislocations. No suspicious bony lesions. Soft tissues: Generalized soft tissue swelling is seen. No emmanuel soft tissue gas is seen. No radiopaque foreign bodies are seen. IMPRESSION: Generalized soft tissue swelling seen, without a focal bony abnormality identified. Dictated by: Charlie Rodas M.D. on 08/31/2024 at 23:53 Approved by: Charlie Rodas M.D. on 08/31/2024 at 23:54
--- NOTE | 2024-09-01 00:27 | ED.SKABFB ---
HPI - Skin/Abscess/Foreign Bdy General Chief complaint: Skin/Abscess/Foreign Body Stated complaint: infection in lt leg Time Seen by Provider: 09/01/24 00:18 Source: patient Mode of arrival: Ambulatory History of Present Illness HPI narrative: 48-year-old male with history of Crohn's disease, psoriasis on Humira, hypertension presents by private vehicle from home for worsening redness of his left lower extremity. Patient states that he noticed some redness in his left lower extremity 3 days ago. At that time he was in [place] and went to a clinic. He was started on doxycycline and came home to [place]. He saw his primary care doctor Fady 2 days ago. He states that his PCP wanted to admit him, but he was resistant to the idea at that time and wanted to go home. He was given ?2 shots? and switched to Bactrim, but he can not remember the name of the injections he received. A margin was drawn around the red area of his leg and he was told that if anything gets worse he should come back to the emergency department. Patient states that since he was started on Bactrim the leg feels more painful and more swollen. The red area has seemed to get darker. It has not spread outside of the margins drawn 2 days ago at his primary care doctor's office. Related Data Home Medications Medication Instructions Recorded Confirmed lisinopril 30 mg tablet 30 mg PO DAILY 03/31/20 04/25/24 sertraline 50 mg tablet 50 mg PO DAILY 03/31/20 03/31/20 amlodipine 10 mg tablet 10 mg PO DAILY 04/25/24 04/25/24 Previous Rx's Medication Instructions Recorded ondansetron 4 mg disintegrating 4 mg PO Q8H PRN nausea and 09/18/19 tablet vomiting #5 tabs ketorolac 10 mg tablet 10 mg PO Q6H PRN pain #14 tabs 02/21/22 ondansetron 4 mg disintegrating 4 mg PO TID-QID PRN nausea and 02/21/22 tablet vomiting #10 tabs acyclovir 800 mg tablet 800 mg PO 5XD #35 tabs 04/25/24 gabapentin 300 mg capsule 300 mg PO BEDTIME #30 caps 04/25/24 hydrocodone 5 mg-acetaminophen 325 1 tab PO Q6H PRN pain #20 tabs 04/25/24 mg tablet prednisone 20 mg tablet 40 mg (2 x 20 mg) PO DAILY #10 tabs 04/25/24 doxycycline hyclate 100 mg tablet 100 mg PO BID #20 tabs 05/11/24 Allergies Allergy/AdvReac Type Severity Reaction Status Date / Time aripiprazole [From Abilify] Allergy Verified 05/11/24 10:57 Patient History Medical History Snoring Obstructive sleep apnea syndrome Fatigue Insomnia Crohn's colitis Depression Psoriasis Cellulitis of back Skin abscess Surgical History History of resection of terminal ileum Family History Family/Other Dementia Father Loud snoring Restless legs Obesity Hypertension Depression Anxiety Alcohol abuse Mother Loud snoring Sleep apnea Restless legs Obesity Hypertension Depression Anxiety Social History Smoking Status: Former smoker Smoking Status: Former smoker alcohol intake frequency: holidays/special occasions only Substance Use Type: marijuana Exam Initial Vital Signs Initial Vital Signs: Vital Signs Temperature 98.8 F 09/01/24 00:23 Pulse Rate 102 H 09/01/24 00:23 Respiratory Rate 18 09/01/24 00:23 Blood Pressure 145/90 H 09/01/24 00:23 Pulse Oximetry 97 09/01/24 00:23 Oxygen Delivery Method Room Air 09/01/24 00:23 Const: Awake, alert, appears chronically unwell Cardiac: regular rate, regular rhythm RESP: unlabored, speaking in complete sentences without dyspnea MSK: swelling between L knee and L ankle. Compartments soft. 2+ DP pulses, no pain out of proportion Skin: circumferential erythema from L knee to L ankle, no fluctuance Neuro: AO x3, CN II-XII grossly intact, moves all extremities Course Orders Ordered: ED Orders 09/01/24 00:26 XR tibia fibula LT 2V Stat 09/01/24 00:30 Blood Culture Stat CBC Auto Diff [Complete Blood Count AUTO DIFF] Stat CMP [Comprehensive Metabolic Panel] Stat CRP [C-Reactive Protein Quant] Stat Erythrocyte Sedimentation Rate Stat Procalcitonin Stat Vancomycin HCl/Dextrose (Vancomycin) 2,000 mg in 400 mls @ 200 mls/hr IV NOW ONE Stop: 09/01/24 04:09 Discontinued Medications Ceftriaxone Sodium 2,000 mg/ (Sodium Chloride) 100 mls @ 200 mls/hr IV NOW ONE Stop: 09/01/24 02:11 Morphine Sulfate (Morphine 4 Mg/Ml Inj) 4 mg IV NOW ONE Stop: 09/01/24 00:38 Last Admin: 09/01/24 00:42 Dose: 4 mg Vital Signs Vital signs: Vital Signs - 8 hr 09/01/24 00:23 09/01/24 00:23 09/01/24 00:30 Temperature 98.8 F Pulse Rate 102 H 104 H 96 H Respiratory Rate 18 Blood Pressure 145/90 H Pulse Oximetry 97 97 95 Oxygen Delivery Method Room Air 09/01/24 00:30 09/01/24 01:00 09/01/24 01:00 Temperature Pulse Rate 85 Respiratory Rate Blood Pressure 122/66 122/75 Pulse Oximetry 94 Oxygen Delivery Method 09/01/24 01:30 09/01/24 01:30 Temperature Pulse Rate 80 Respiratory Rate Blood Pressure 128/72 Pulse Oximetry 92 Oxygen Delivery Method MDM - Skin/Abscess/Foreign Bdy Lab Data 09/01/24 00:30 09/01/24 00:30 Labs: Lab Results 09/01/24 Range/Units 00:30 WBC 8.8 (4.5-11.0) X10^3/uL RBC 4.97 (4.5-5.9) X10^6/uL Hgb 13.9 (13.5-17.5) g/dL Hct 40.6 L (41-53) % MCV 81.8 (80-100) fL MCH 27.9 (26-34) PG MCHC 34.1 (30-36) % RDW 14.2 (11.6-14.8) % Plt Count 376 (150-400) X10^3/uL Neut % (Auto) 56.6 (50-75) % Lymph % (Auto) 28.7 (25-40) % [place] % (Auto) 11.6 (3-14) % Eos % (Auto) 2.2 (2-4) % Baso % (Auto) 0.9 (0-2) % Neut # (Auto) 5000 (4683-2271) /uL Lymph # (Auto) 2500 (6731-5941) /uL [place] # (Auto) 1000 H (0-900) /uL Eos # (Auto) 200 (0-450) /uL Baso # (Auto) 100 (0-100) /uL ESR 41 H (0-15) MM/HR Sodium 136 L (137-145) mmol/L Potassium 3.4 (3.4-5.1) mmol/L Chloride 101 (98-107) mmol/L Carbon Dioxide 27 (22-32) mmol/L BUN 26 H (9-20) mg/dL Creatinine 1.30 H (0.66-1.25) mg/dL Estimated GFR > 60 (>60) mL/min BUN/Creatinine Ratio 20.0 (6-22) Glucose 143 H (70-100) mg/dL Calcium 8.8 (8.4-10.2) mg/dL Total Bilirubin 0.6 (0.2-1.3) mg/dL AST 33 (17-59) IU/L ALT 31 (<50) IU/L Alkaline Phosphatase 81 (38-126) U/L C-Reactive Protein 5.4 H (<1.0) mg/dL Total Protein 8.2 (6.3-8.2) g/dL Albumin 4.0 (3.5-5.0) g/dL Globulin 4.2 H (1.7-4.1) g/dL Albumin/Globulin Ratio 1.0 (1.0-2.8) Procalcitonin 0.476 (<0.5) ng/mL MDM Narrative Medical decision making narrative: Patient presenting for worsening pain in darkening redness of his left lower extremity. He states that his primary care doctor initially wanted to admit him, but he was resistant to the idea. The patient has a well drawn margin around his lower extremity, and the erythema does not appear to have spread outside of the margins but it does appear to be dark red in color and the patient was reporting worsening pain. Compartments are soft, patient has palpable distal pulses, no pain with passive range of motion of his lower extremity. Laboratory work reviewed, WBC count 8.8, hemoglobin 13.9, platelets 376, sodium 136, creatinine 1.3, normal liver enzymes. Procalcitonin 0.46, CRP 5.4, sed rate 41. Patient given IV vancomycin and Rocephin, accepted by Dr. Szymanski hospitalist for further treatment. Discharge Plan Departure Patient Disposition: Admitted as Observation Admit Date/Time: 09/01/24 02:18
[2024-09-01] MEDS: MORPHINE 4 MG/ML INJ IV (00:42)
[2024-09-01 00:51] LABS: Add Manual Diff / Slide Review NO; Basophils Absolute Auto 100 /uL (0-100); Basophils Percent Auto 0.9 % (0-2); Eosinophils Absolute Auto 200 /uL (0-450); Eosinophils Percent Auto 2.2 % (2-4); Hematocrit 40.6 % (41-53); Hemoglobin 13.9 g/dL (13.5-17.5); Lymphocytes Absolute Auto 2500 /uL (1100-4500); Lymphocytes Percent Auto 28.7 % (25-40); Mean Corpuscular HGB Conc 34.1 % (30-36); Mean Corpuscular Hemoglobin 27.9 PG (26-34); Mean Corpuscular Volume 81.8 fL (80-100); Monocytes Absolute Auto 1000 /uL (0-900); Monocytes Percent Auto 11.6 % (3-14); Neutrophils Absolute Auto 5000 /uL (1500-7000); Neutrophils Percent Auto 56.6 % (50-75); Platelet Count 376 X10^3/uL (150-400); Red Blood Cell Count 4.97 X10^6/uL (4.5-5.9); Red Cell Distribution Width 14.2 % (11.6-14.8); White Blood Cell Count 8.8 X10^3/uL (4.5-11.0)
[2024-09-01 01:08] LABS: Alanine Aminotransferase 31 IU/L (<50); Alkaline Phosphatase 81 U/L (38-126); Aspartate Aminotransferase 33 IU/L (17-59); Bilirubin Total 0.6 mg/dL (0.2-1.3); Blood Urea Nitrogen 26 mg/dL (9-20); C-Reactive Protein Quant 5.4 mg/dL (<1.0); Calcium 8.8 mg/dL (8.4-10.2); Carbon Dioxide 27 mmol/L (22-32); Chloride 101 mmol/L (98-107); Estimated Glomerular Filt Rate > 60 mL/min (>60); Globulin 4.2 g/dL (1.7-4.1); Glucose 143 mg/dL (70-100); HEMOLYSIS < 15 (0-50); Potassium 3.4 mmol/L (3.4-5.1); Sodium 136 mmol/L (137-145); Total Protein 8.2 g/dL (6.3-8.2)
[2024-09-01 01:22] LABS: Procalcitonin 0.476 ng/mL (<0.5)
[2024-09-01 02:01] LABS: Erythrocyte Sedimentation Rate 41 MM/HR (0-15)
[2024-09-01] MEDS: cefTRIAXone 2,000 MG in SODIUM CHLORIDE 0.9% 100 ML 200 MG IV (02:21)
[2024-09-01] MEDS: HYDROCODONE/ACET 5/325 TABLET 2 TAB PO ×2 (03:33→09:48)
[2024-09-01] MEDS: VANCOMYCIN 1,500 MG/300 ML PIGGYBACK 150 MG IV (03:35)
[2024-09-01] MEDS: VANCOMYCIN 1,000 MG/200 ML PIGGYBACK 200 MG IV (05:22)
[2024-09-01] MEDS: HYDROCODONE/ACET 5/325 TABLET 1 TAB PO ×3 (06:35→17:36)
[2024-09-01] MEDS: POTASSIUM CHLORIDE 20 MEQ TAB 40 MEQ PO (09:33)
[2024-09-01] MEDS: ENOXAPARIN 40 MG/0.4 ML SYRINGE SUBCUT (09:33)
--- NOTE | 2024-09-01 09:39 | P.HP_ITS ---
History of Present Illness History of Present Illness Date Patient Seen: 09/01/24 Time Patient Seen: 09:40 Chief complaint: infection in lt leg Narrative: 48-year-old male with Crohn's disease on Humira who presented to [facility] Emergency Department with redness and swelling consistent with infection in his left leg. He had been seen by his PCP a couple of days prior in the clinic wanted to admit him to the hospital but he declined. He was given some parental antibiotics and placed on oral trimethoprim sulfamethoxazole, but failed to improve. Does have a history of MRSA in the past. He returned to the hospital for evaluation because the redness in his leg became more bright red and pain became more prominent. The redness has not extended beyond the lines drawn by his PCP in the clinic however ER evaluation included a normal white blood cell count with mild anemia (seen previously), bit of an acute kidney injury with creatinine now at 1.3 normal previously, elevated C-reactive protein and borderline positive procalcitonin. He was given parental ceftriaxone and vancomycin and admitted for continued antibiotic therapy. [facility] Medical History MRSA (methicillin resistant Staphylococcus aureus) Shingles rash (~04/2024) Crohn disease Essential hypertension Obstructive sleep apnea syndrome Depression Psoriasis Cellulitis of back Skin abscess Surgical History History of resection of terminal ileum Family History Family/Other Dementia Father Loud snoring Restless legs Obesity Hypertension Depression Anxiety Alcohol abuse Mother Loud snoring Sleep apnea Restless legs Obesity Hypertension Depression Anxiety Social History household members: spouse and children Smoking Status: Former smoker Meds Home Medications and Allergies Home Medications Medication Instructions Recorded Confirmed Type lisinopril 30 mg tablet 30 mg PO DAILY 03/31/20 09/01/24 History amlodipine 10 mg tablet 10 mg PO DAILY 04/25/24 09/01/24 History adalimumab-adbm 40 mg/0.4 mL 40 mg SUBCUT Q2W 09/01/24 09/01/24 History subcutaneous pen kit (adalimumab-adbm(CF) pen Crohn's-[facility] Starter) hydrochlorothiazide 12.5 mg tablet 12.5 mg PO DAILY 09/01/24 09/01/24 History sertraline 100 mg tablet 200 mg PO DAILY 09/01/24 09/01/24 History Allergies Allergy/AdvReac Type Severity Reaction Status Date / Time aripiprazole [From Abilify] Allergy Verified 05/11/24 10:57 Review of Systems Review of Systems ROS: Yes All systems reviewed with the patient and are negative except as otherwise documented Exam Vital Signs (past 8 hours): - 09/01/24 02:00 09/01/24 02:00 09/01/24 02:30 Temperature Pulse Rate 78 84 Respiratory Rate Blood Pressure 132/72 Pulse Oximetry 95 95 Oxygen Delivery Method Oxygen Flow Rate 09/01/24 02:30 09/01/24 03:00 09/01/24 03:00 Temperature Pulse Rate 82 Respiratory Rate Blood Pressure 137/78 137/80 Pulse Oximetry 98 Oxygen Delivery Method Room Air Oxygen Flow Rate 09/01/24 03:05 09/01/24 04:31 09/01/24 07:00 Temperature 96.8 F L Pulse Rate 79 Respiratory Rate 20 Blood Pressure 137/79 Pulse Oximetry 98 Oxygen Delivery Method Room Air Room Air Oxygen Flow Rate 0 Oxygen Delivery Method Room Air Oxygen Flow Rate 0 Narrative Exam Narrative: Non acutely ill-appearing middle-aged male in no obvious distress lying in hospital bed HEENT-normocephalic atraumatic PERRLA EOMs intact Neck-no bruits Lungs-clear with good breath sounds Heart-regular rate and rhythm Abdomen-benign no organomegaly positive bowel tones Extremities-erythema left lower extremity below the knee not quite a bright pink but a prominent angry shade of red consistent with active infection, well within inked lines drawn presumably in the clinic on the august, no fluctuance minor tenderness to palpation, minor edema distally in the foot and toes Objective Labs 09/01/24 00:30 09/01/24 00:30 Labs: Laboratory Results - last 24 hr 09/01/24 00:30 WBC 8.8 RBC 4.97 Hgb 13.9 Hct 40.6 L MCV 81.8 MCH 27.9 MCHC 34.1 RDW 14.2 Plt Count 376 Neut % (Auto) 56.6 Lymph % (Auto) 28.7 [place] % (Auto) 11.6 Eos % (Auto) 2.2 Baso % (Auto) 0.9 Neut # (Auto) 5000 Lymph # (Auto) 2500 [place] # (Auto) 1000 H Eos # (Auto) 200 Baso # (Auto) 100 ESR 41 H Sodium 136 L Potassium 3.4 Chloride 101 Carbon Dioxide 27 BUN 26 H Creatinine 1.30 H Estimated GFR > 60 BUN/Creatinine Ratio 20.0 Glucose 143 H Calcium 8.8 Total Bilirubin 0.6 AST 33 ALT 31 Alkaline Phosphatase 81 C-Reactive Protein 5.4 H Total Protein 8.2 Albumin 4.0 Globulin 4.2 H Albumin/Globulin Ratio 1.0 Procalcitonin 0.476 Assessment & Plan Assessment & Plan narrative: 1. Left lower extremity cellulitis-continue current parental antibiotics. When improving could consider switching to oral antibiotics that would cover potential MRSA. Blood cultures pending but doubt these will be positive, given normal white blood cell count and appearance of his infection on his leg. 2. Crohn's-will need to hold Humira while treating active infection. 3. Hypertension-continue patient's usual meds, but holding his hydrochlorothiazide until acute kidney injury resolves 4. Depression-continue patient's usual meds 5. VTE prophylaxis-Lovenox appropriate and ordered in addition to SCDs 6. Code status-full code in the event of a sudden cardiac or respiratory arrest which is not anticipated 7. Acute kidney injury-patient now with a creatinine of 1.3. Will give some gentle IV fluids through the course of the day today and rechecked tomorrow. Hold hydrochlorothiazide as above until ATIF improves Time-Based Coding :: [TOTAL MINUTES] spent with patient and on the chart (including review of chart, obtaining history, exam, reviewing outside data, placing orders, documenting exam and treatment plan, and counseling patient) on [DATE]. Quality VTE Deep Vein Thrombosis/Pulmonary Embolism Present on Admission: No IH PROFEE Charge Codes Initial inpatient/observation care: 95150
[2024-09-01] MEDS: SODIUM CHLORIDE 0.45% 1,000 ML 125 ML IV (09:55)
[2024-09-01] MEDS: lisinopriL 20 MG TABLET PO (09:55)
[2024-09-01] MEDS: AMLODIPINE 5 MG TABLET 10 MG PO (09:55)
[2024-09-01] MEDS: SERTRALINE 50 MG TABLET 200 MG PO (09:55)
--- NOTE | 2024-09-01 12:33 | CM.DANOTE ---
Initial DCP Assessment Visit Note Reviewed EMR and team rounds for status updates. Met with pt at bedside to introduce self and role, pt was found to be somnolent, but alert/oriented, resting quietly in bed. He resides independently at baseline with his and youngest child in their own home in [place]. His will transport him home once he's been medically cleared for d/c. Payor: [facility] PCP: Dr. Shrestha Pt is a 48 year-old M presented to the ED yesterday afternoon w/worsening redness and swelling of his L-lower leg over the course of the last 3-days. He was started on oral ABO's by a clinic in [place], while they were down there visiting his 's parents. He came home 2-days later and saw his PCP due to worsening pain/redness. He was then given 2-injections and started on Bactrim. His leg then became rapidly more worse, and he was sent by his PCP to the ED for further eval/tx. He was again started on IV ABO's and was admitted for further tx. Pt is not stable enough to work with therapies yet. Depending on his level of improvement, pt may need an OP plan for cont. antibiotics. DCP will continue to monitor and assist with final d/c recommendations and needs. Discharge Planning/Care Management CM Discharge Assessment Start: 09/01/24 12:31 Freq: Status: Active Protocol: Document 09/01/24 12:31 DPL (Rec: 09/01/24 12:33 DPL [id number]) Discharge Planning Assessment Assigned Frame Polisher MARY Kohler Advance Directives? No History Provided By Patient,Medical Record Has Patient been admitted in last 30 No days? Prior Living Arrangements House Household Members spouse,children Type of transporation used prior to Drives own vehicle admit Independent with ADL's Yes Is patient alert and oriented? Yes Comment N/A Caregiver for Another Yes Comment N/A Comment N/A Comment Pending final recs for continued OP antibiotics vs. home w/oral. Barriers to Discharge No Discharge Plan Home Transportation Arrangement Spouse Referrals Initiated None needed Whiteboard Updated in Patient Room with Yes name and ext. # of Frame Polisher Review Status In Process Please Provide Date Initial DC 09/01/24 Assessment Was Performed
[2024-09-01] MEDS: VANCOMYCIN 1,250 MG/250 ML PIGGYBACK 166.667 MG IV (15:38)
[2024-09-02] MEDS: cefTRIAXone 2,000 MG in SODIUM CHLORIDE 0.9% 100 ML 200 MG IV (03:04)
[2024-09-02] MEDS: HYDROCODONE/ACET 5/325 TABLET 1 TAB PO ×4 (03:13→18:37)
[2024-09-02] MEDS: VANCOMYCIN 1,250 MG/250 ML PIGGYBACK 166.667 MG IV ×2 (03:15→16:49)
[2024-09-02 04:41] LABS: BUN Creatinine Ratio 16.3 (6-22); Blood Urea Nitrogen 15 mg/dL (9-20); Calcium 8.7 mg/dL (8.4-10.2); Carbon Dioxide 28 mmol/L (22-32); Chloride 105 mmol/L (98-107); Estimated Glomerular Filt Rate > 60 mL/min (>60); Glucose 102 mg/dL (70-100); HEMOLYSIS < 15 (0-50); Potassium 4.2 mmol/L (3.4-5.1); Sodium 137 mmol/L (137-145)
--- NOTE | 2024-09-02 06:50 | PC.NURSE ---
pt has had an uneventful shift; he was medicated once w/ 1 hydrocodone for left leg pain 02/22; adequate pain relief noted
--- NOTE | 2024-09-02 07:00 | DI.US.S_ITS ---
PROCEDURE: US PERIPH VENOUS LOW EXTREM LT INDICATIONS: DVT R/O TECHNIQUE: Real-time imaging, as well as color and pulse Doppler interrogation, were performed of the lower extremity deep veins from the inguinal ligament to the popliteal fossa, with documentation of the visualized calf veins. COMPARISON: None. FINDINGS: The common femoral, femoral, popliteal, and the visualized calf veins are normally compressible, and free of intraluminal thrombus. Color and pulse Doppler demonstrate normal phasic intraluminal flow. There is normal augmentation response to distal compression maneuver. IMPRESSION: No findings of lower extremity deep venous thrombosis. Dictated by: Bryon Mitchell M.D. on 09/02/2024 at 8:54 Approved by: Bryon Mitchell M.D. on 09/02/2024 at 8:55
[2024-09-02 08:40] VITALS: BP 123/69; PULSE 75
[2024-09-02] MEDS: lisinopriL 20 MG TABLET PO (08:40)
[2024-09-02] MEDS: AMLODIPINE 5 MG TABLET 10 MG PO (08:40)
[2024-09-02] MEDS: ENOXAPARIN 40 MG/0.4 ML SYRINGE SUBCUT (08:40)
[2024-09-02] MEDS: SERTRALINE 50 MG TABLET 200 MG PO (08:40)
[2024-09-02 08:53] VITALS: PULSE 75; RESP 16; TEMP 36.1; O2SAT 97
--- NOTE | 2024-09-02 10:54 | DIET.CONS ---
Dietary Consultation Note Admission Date: 09/01/2024 02:18 Assessment: 48 y M admitted for lower extremity cellulitis. RD consulted for weight loss of 10 lb in 3 months. Met w/ pt at bedside. Pt reports having no PO intakes d/t being unable to keep food down on Monday/Monday of last week until last week on (2-3 days no PO intakes). Ate 2 meals on Monday and has been eating since then, with a slight decrease in appetite d/t feeling tired. Ate 100% breakfast. Reports normal appetite/ no changes with multiple meals per day before last Monday/Monday. Pt reports no recent weight loss. EMR reviewed, no significant weight loss noted. DFM reviewed for nutritional composition. No nutritional interventions needed at this time. Will continue to monitor PO intakes and f/u as needed. Ht: 182.88 cm Wt: 127 kg BMI: 38.0 UBW: 123-127 kg per pt, per EMR 129.274 kg on 05/11/24 (non-severe weight loss <3%), 133.356 kg on 11/15/23 (-5% weight loss within 1 yr, non-severe) Last BM: 08/31/24 (09/01/24 02:59) MNA: 8 Familia Score: 21 Diet: 09/01/24 Breakfast General (Regular) Diet Diet Modifications: Nutrition Percent Meal Consumed 100% 09/02/24 10:27 Labs: RBC 4.97 X10^6/uL (4.5-5.9) 09/01/24 00:30 Hgb 13.9 g/dL (13.5-17.5) 09/01/24 00:30 Hct 40.6 % (41-53) L 09/01/24 00:30 Creatinine 0.92 mg/dL (0.66-1.25) 09/02/24 04:08 Electronically Signed by: Mely Cornell 09/02/24 10:54 Clinical Dietitian [address] [address]
[2024-09-02] MEDS: VANCOMYCIN TROUGH 1 REQUEST MISC (15:45)
[2024-09-02 16:38] LABS: Vancomycin Trough 10.1 ug/mL (10-20)
--- NOTE | 2024-09-02 18:38 | PM.PN.1 ---
Subjective Subjective Date Patient Seen: 09/02/24 Time Patient Seen: 18:38 Interval history: Patient is well known to me. History of severe psoriasis and Crohn's and is currently being treated with Humira. Last injection was August 18. Patient has been in the hospital since Monday night. Currently on ceftriaxone IV and vancomycin for lower extremity cellulitis thought to be secondary to complication of psoriasis. Patient is feeling better. He has excruciating pain when he puts his leg down and ambulates. Otherwise while resting in bed he is not having pain. His ankle is painful though. He denies any other symptoms. No difficulty breathing or other problems. He is tolerating p.o. without difficulty. He is taking 1 Tylenol with codeine at a time and this is helping with his pain. His and his 3 children are present at the time my evaluation 12 point review of systems otherwise negative. No history of insect bite when he was in [place]. No shortness a breath. No chest pain. No changes in bowel or bladder function. Exam Vital Signs (past 8 hours): Oxygen Delivery Method Room Air Oxygen Flow Rate 0 Narrative Exam Narrative: Patient is afebrile and vital signs are stable HEENT unremarkable Neck is supple Chest: Clear to auscultation without wheezes rhonchi or crackles Cor: Regular rate and rhythm without a murmur Abdomen positive bowel sounds, soft, nontender, no hepatosplenomegaly Extremities left lower extremity with swelling but decreased swelling from when I saw him on August 30 evening. Still with vesicular lesions due to significant fluid and some weeping. The erythema has receded from the lines that I had drawn Monday night. But area of erythema that is still present is more intense. Tenderness is decreased with palpation of the lower leg Skin shows diffuse psoriasis. No other rashes Objective Labs 09/01/24 00:30 09/02/24 04:08 Labs: Laboratory Results - last 24 hr 09/02/24 09/02/24 04:08 15:55 Sodium 137 Potassium 4.2 Chloride 105 Carbon Dioxide 28 BUN 15 Creatinine 0.92 Estimated GFR > 60 BUN/Creatinine Ratio 16.3 Glucose 102 H Calcium 8.7 Vancomycin Trough 10.1 PFSH Medical History MRSA (methicillin resistant Staphylococcus aureus) Shingles rash (~04/2024) Crohn disease Essential hypertension Obstructive sleep apnea syndrome Depression Psoriasis Cellulitis of back Skin abscess Surgical History History of resection of terminal ileum Family History Family/Other Dementia Father Loud snoring Restless legs Obesity Hypertension Depression Anxiety Alcohol abuse Mother Loud snoring Sleep apnea Restless legs Obesity Hypertension Depression Anxiety Social History household members: spouse and children Smoking Status: Former smoker Assessment & Plan Assessment & Plan narrative: 48-year-old male with a history of hypertension, psoriasis and Crohn's admitted for lower extremity cellulitis 1. Left lower extremity cellulitis-continue current parental antibiotics, IV vancomycin and ceftriaxone. Suspect that he will need continued treatment until more significant improvement though he does seem to be improving. When improving could consider switching to oral antibiotics that would cover potential MRSA. Blood cultures pending but doubt these will be positive, given normal white blood cell count and appearance of his infection on his leg. We will continue with same pain control, elevation. Recheck labs in the morning 2. Crohn's-will need to hold Humira while treating active infection. 3. Hypertension-continue patient's usual meds, but holding his hydrochlorothiazide until acute kidney injury resolves 4. Depression-continue patient's usual meds, outpatient 5. VTE prophylaxis-Lovenox appropriate and ordered in addition to SCDs 6. Code status-full code in the event of a sudden cardiac or respiratory arrest which is not anticipated 7. Acute kidney injury-patient now back to normal. Will continue with IV hydration and hold hydrochlorothiazide and recheck labs tomorrow and if stable will reinitiate. Hold hydrochlorothiazide as above until ATIF improves 8. Lower extremity edema left. Suspect all related to cellulitis. Vascular duplex shows no evidence of clot. This was done due to patient's history of travel and leg swelling and pain. Code status is full code Time spent with patient reviewing chart, discussing with the physician, nursing, meeting with patient, formulating a plan and documentation was 55 minutes Time-Based Coding :: [TOTAL MINUTES] spent with patient and on the chart (including review of chart, obtaining history, exam, reviewing outside data, placing orders, documenting exam and treatment plan, and counseling patient) on [DATE]. Quality VTE Deep Vein Thrombosis/Pulmonary Embolism Present on Admission: No
[2024-09-02 20:00] VITALS: BP 129/78; PULSE 76; RESP 18; TEMP 36.1; O2SAT 96
[2024-09-03] MEDS: cefTRIAXone 2,000 MG in SODIUM CHLORIDE 0.9% 100 ML 200 MG IV (03:33)
[2024-09-03] MEDS: HYDROCODONE/ACET 5/325 TABLET 2 TAB PO (03:34)
[2024-09-03 04:35] LABS: Add Manual Diff / Slide Review NO; Basophils Absolute Auto 0 /uL (0-100); Basophils Percent Auto 0.5 % (0-2); Eosinophils Absolute Auto 300 /uL (0-450); Eosinophils Percent Auto 3.7 % (2-4); Hematocrit 37.5 % (41-53); Hemoglobin 12.4 g/dL (13.5-17.5); Lymphocytes Absolute Auto 2000 /uL (1100-4500); Lymphocytes Percent Auto 29.6 % (25-40); Mean Corpuscular HGB Conc 33.1 % (30-36); Mean Corpuscular Hemoglobin 27.1 PG (26-34); Mean Corpuscular Volume 81.7 fL (80-100); Monocytes Absolute Auto 700 /uL (0-900); Monocytes Percent Auto 10.2 % (3-14); Neutrophils Absolute Auto 3800 /uL (1500-7000); Platelet Count 348 X10^3/uL (150-400); Red Blood Cell Count 4.59 X10^6/uL (4.5-5.9); Red Cell Distribution Width 13.9 % (11.6-14.8); White Blood Cell Count 6.8 X10^3/uL (4.5-11.0)
[2024-09-03 04:52] LABS: BUN Creatinine Ratio 15.6 (6-22); Blood Urea Nitrogen 14 mg/dL (9-20); Calcium 8.8 mg/dL (8.4-10.2); Carbon Dioxide 29 mmol/L (22-32); Chloride 105 mmol/L (98-107); Estimated Glomerular Filt Rate > 60 mL/min (>60); Glucose 101 mg/dL (70-100); HEMOLYSIS < 15 (0-50); Potassium 4.2 mmol/L (3.4-5.1); Sodium 139 mmol/L (137-145)
[2024-09-03] MEDS: VANCOMYCIN 1,500 MG/300 ML PIGGYBACK 200 MG IV ×2 (05:19→17:40)
[2024-09-03] MEDS: HYDROCODONE/ACET 5/325 TABLET 1 TAB PO ×3 (08:06→21:31)
[2024-09-03 08:08] VITALS: BP 137/82; PULSE 72; RESP 16; TEMP 36.1; O2SAT 99
[2024-09-03] MEDS: AMLODIPINE 5 MG TABLET 10 MG PO (08:08)
[2024-09-03] MEDS: lisinopriL 20 MG TABLET PO (08:08)
[2024-09-03] MEDS: SERTRALINE 50 MG TABLET 200 MG PO (08:08)
[2024-09-03] MEDS: ENOXAPARIN 40 MG/0.4 ML SYRINGE SUBCUT (08:09)
--- NOTE | 2024-09-03 14:56 | CM.DPC ---
DCP Cont. Reviewed EMR and team rounds for status updates. Pt has been having some increased pain issues, however, cultures are back and plan is d/c on 09/04 with oral antibiotics. Will monitor for any further home d/c needs.
--- NOTE | 2024-09-03 17:56 | PM.PN.1 ---
Subjective Subjective Date Patient Seen: 09/03/24 Time Patient Seen: 17:56 Interval history: Patient had unremarkable night. His pain is well managed. He was only given Tylenol codeine twice. He is tolerating p.o. without difficulty. He is still having significant pain when he gets up to ambulate. But this does seem to be improving. He is having no new symptoms. Denies any chest pain or shortness of breath 12 point review of systems otherwise negative Exam Vital Signs (past 8 hours): Oxygen Delivery Method Room Air Oxygen Flow Rate 0 Narrative Exam Narrative: Afebrile vital signs are stable Blood pressure has been improved HEENT unremarkable Neck supple Chest: Clear to auscultation without wheezes rhonchi or crackles Cor: Regular rate and rhythm without murmur Abdomen: Positive bowel sounds, soft, nontender Extremities: Left lower extremity [id number] still with significant erythema although it is less hyperemic and more dark red. The erythema has decreased from the area of marking slightly from yesterday. The swelling has decreased slightly. Still swelling in the posterior ankle and tenderness here. Still tenderness on the lower leg No change in severe psoriatic plaques diffusely throughout his body Objective Labs 09/03/24 04:13 09/03/24 04:13 Labs: Laboratory Results - last 24 hr 09/03/24 04:13 WBC 6.8 RBC 4.59 Hgb 12.4 L Hct 37.5 L MCV 81.7 MCH 27.1 MCHC 33.1 RDW 13.9 Plt Count 348 Neut % (Auto) 56.0 Lymph % (Auto) 29.6 [place] % (Auto) 10.2 Eos % (Auto) 3.7 Baso % (Auto) 0.5 Neut # (Auto) 3800 Lymph # (Auto) 2000 [place] # (Auto) 700 Eos # (Auto) 300 Baso # (Auto) 0 Sodium 139 Potassium 4.2 Chloride 105 Carbon Dioxide 29 BUN 14 Creatinine 0.90 Estimated GFR > 60 BUN/Creatinine Ratio 15.6 Glucose 101 H Calcium 8.8 PFSH Medical History MRSA (methicillin resistant Staphylococcus aureus) Shingles rash (~04/2024) Crohn disease Essential hypertension Obstructive sleep apnea syndrome Depression Psoriasis Cellulitis of back Skin abscess Surgical History History of resection of terminal ileum Family History Family/Other Dementia Father Loud snoring Restless legs Obesity Hypertension Depression Anxiety Alcohol abuse Mother Loud snoring Sleep apnea Restless legs Obesity Hypertension Depression Anxiety Social History household members: spouse and children Smoking Status: Former smoker Assessment & Plan Assessment & Plan narrative: 48-year-old male with a history of hypertension, psoriasis and Crohn's admitted for lower extremity cellulitis 1. Left lower extremity cellulitis-continue current parental antibiotics, IV vancomycin and ceftriaxone. Suspect that he will need continued treatment until more significant improvement though he does seem to be improving. When improving could consider switching to oral antibiotics that would cover potential MRSA. Blood cultures pending but negative x2 after 48 hours. We will continue with same pain control, elevation. Recheck labs in the morning. If continues to improve anticipate discharge tomorrow or more likely . Will send him home on linezolid 600 mg twice daily likely 2. Crohn's-will need to hold Humira while treating active infection. 3. Hypertension-much better controlled here in the hospital. Suspect related to patient not regularly taking his medications at home. Counseled him on compliance and long-term complications of hypertension. We will go ahead and add the 12.5 of hydrochlorothiazide back 4. Depression-continue patient's usual meds, outpatient 5. VTE prophylaxis-Lovenox appropriate and ordered in addition to SCDs 6. Code status-full code in the event of a sudden cardiac or respiratory arrest which is not anticipated 7. Acute kidney injury-patient now back to normal. Will continue with oral hydration restart hydrochlorothiazide 8. Lower extremity edema left. Suspect all related to cellulitis. Vascular duplex shows no evidence of clot. This was done due to patient's history of travel and leg swelling and pain. Code status is full code Time spent with patient reviewing chart, discussing with the physician, nursing, meeting with patient, formulating a plan and documentation was 45 minutes Time-Based Coding :: [TOTAL MINUTES] spent with patient and on the chart (including review of chart, obtaining history, exam, reviewing outside data, placing orders, documenting exam and treatment plan, and counseling patient) on [DATE]. Quality VTE Deep Vein Thrombosis/Pulmonary Embolism Present on Admission: No
[2024-09-03 20:00] VITALS: BP 147/83; PULSE 72; RESP 18; TEMP 36.1; O2SAT 99
[2024-09-04] MEDS: cefTRIAXone 2,000 MG in SODIUM CHLORIDE 0.9% 100 ML 200 MG IV (03:02)
[2024-09-04 04:40] LABS: Add Manual Diff / Slide Review NO; Basophils Absolute Auto 0 /uL (0-100); Basophils Percent Auto 0.7 % (0-2); Eosinophils Absolute Auto 300 /uL (0-450); Eosinophils Percent Auto 4.1 % (2-4); Hematocrit 38.5 % (41-53); Lymphocytes Absolute Auto 2100 /uL (1100-4500); Lymphocytes Percent Auto 31.2 % (25-40); Mean Corpuscular HGB Conc 33.7 % (30-36); Mean Corpuscular Hemoglobin 27.4 PG (26-34); Mean Corpuscular Volume 81.5 fL (80-100); Monocytes Absolute Auto 600 /uL (0-900); Monocytes Percent Auto 8.9 % (3-14); Neutrophils Absolute Auto 3700 /uL (1500-7000); Neutrophils Percent Auto 55.1 % (50-75); Platelet Count 387 X10^3/uL (150-400); Red Blood Cell Count 4.73 X10^6/uL (4.5-5.9); Red Cell Distribution Width 14.1 % (11.6-14.8); White Blood Cell Count 6.7 X10^3/uL (4.5-11.0)
[2024-09-04 04:52] LABS: BUN Creatinine Ratio 14.6 (6-22); Blood Urea Nitrogen 14 mg/dL (9-20); Carbon Dioxide 30 mmol/L (22-32); Chloride 105 mmol/L (98-107); Estimated Glomerular Filt Rate > 60 mL/min (>60); Glucose 97 mg/dL (70-100); HEMOLYSIS < 15 (0-50); Potassium 4.1 mmol/L (3.4-5.1); Sodium 139 mmol/L (137-145)
[2024-09-04] MEDS: VANCOMYCIN 1,500 MG/300 ML PIGGYBACK 200 MG IV ×2 (05:59→17:37)
[2024-09-04] MEDS: HYDROCODONE/ACET 5/325 TABLET 2 TAB PO (06:05)
[2024-09-04 09:00] VITALS: BP 136/83; PULSE 70; RESP 18; TEMP 36.4; O2SAT 97
[2024-09-04] MEDS: ENOXAPARIN 40 MG/0.4 ML SYRINGE SUBCUT (09:07)
[2024-09-04] MEDS: SERTRALINE 50 MG TABLET 200 MG PO (09:11)
[2024-09-04] MEDS: hydroCHLOROthiazide 25 MG TABLET 12.5 MG PO (09:11)
[2024-09-04 09:13] VITALS: BP 136/83; PULSE 70
[2024-09-04] MEDS: AMLODIPINE 5 MG TABLET 10 MG PO (09:13)
[2024-09-04] MEDS: lisinopriL 20 MG TABLET PO (09:13)
[2024-09-04] MEDS: HYDROCODONE/ACET 5/325 TABLET 1 TAB PO ×3 (12:20→21:19)
--- NOTE | 2024-09-04 13:12 | DI.RAD.S_ITS ---
PROCEDURE: XR ANKLE LT MIN 3V INDICATIONS: pain, infection TECHNIQUE: 3 views of the ankle were acquired. COMPARISON: None. FINDINGS: Bones: No fractures or dislocations. Ankle mortise is normally aligned. No suspicious bony lesions. Soft tissues: No tibiotalar joint effusion. Achilles tendon appears normal. IMPRESSION: No acute bony abnormality or significant effusion. Approved by: Ruben Cadena M.D. on 09/04/2024 at 15:59
--- NOTE | 2024-09-04 13:14 | P.PN_ITS ---
Subjective Subjective Date Patient Seen: 09/04/24 Time Patient Seen: 13:14 Interval history: Patient continues to improve very slowly but still with very severe pain and difficulty ambulating when he gets up. Patient still with severe pain in the medial aspect of his ankle and when he turns it externally rotating. No change in other symptoms. Blood pressure continues to be well-controlled. Started on hydrochlorothiazide this morning. Now back on all his outpatient antihypertensives No chest pain or shortness of breath No fevers or chills Slept well. Exam Vital Signs (past 8 hours): - 09/04/24 09:00 09/04/24 09:13 Temperature 97.6 F Pulse Rate 70 70 Respiratory Rate 18 Blood Pressure 136/83 136/83 Pulse Oximetry 97 Oxygen Flow Rate 0 Oxygen Delivery Method Room Air Oxygen Flow Rate 0 Narrative Exam Narrative: Afebrile vital signs are stable Blood pressure 130s over 70s to 80s HEENT unremarkable Neck is supple Chest: Clear to auscultation without wheezes rhonchi or crackles Cor: Regular rate and rhythm without a murmur Extremities left lower extremity was still significant erythema but continues to improve and received from the area less intensely hyperemic and dark red. Still very tender in his especially over the medial ankle and lateral to this. There is also a fair amount of swelling in this area. No clear bony tenderness. Slightly decreased range of motion. Swelling has improved but still present and still with blisters from fluid over the medial posterior ankle and upper leg. Pulses intact. Sensation intact. Skin: Persistent psoriatic plaques Objective Labs 09/04/24 04:11 09/04/24 04:11 Labs: Laboratory Results - last 24 hr 09/04/24 04:11 WBC 6.7 RBC 4.73 Hgb 13.0 L Hct 38.5 L MCV 81.5 MCH 27.4 MCHC 33.7 RDW 14.1 Plt Count 387 Neut % (Auto) 55.1 Lymph % (Auto) 31.2 [place] % (Auto) 8.9 Eos % (Auto) 4.1 H Baso % (Auto) 0.7 Neut # (Auto) 3700 Lymph # (Auto) 2100 [place] # (Auto) 600 Eos # (Auto) 300 Baso # (Auto) 0 Sodium 139 Potassium 4.1 Chloride 105 Carbon Dioxide 30 BUN 14 Creatinine 0.96 Estimated GFR > 60 BUN/Creatinine Ratio 14.6 Glucose 97 Calcium 9.0 [facility] Medical History MRSA (methicillin resistant Staphylococcus aureus) Shingles rash (~04/2024) Crohn disease Essential hypertension Obstructive sleep apnea syndrome Depression Psoriasis Cellulitis of back Skin abscess Surgical History History of resection of terminal ileum Family History Family/Other Dementia Father Loud snoring Restless legs Obesity Hypertension Depression Anxiety Alcohol abuse Mother Loud snoring Sleep apnea Restless legs Obesity Hypertension Depression Anxiety Social History household members: spouse and children Smoking Status: Former smoker Assessment & Plan Assessment & Plan narrative: 48-year-old male with a history of hypertension, psoriasis and Crohn's admitted for lower extremity cellulitis, hospital day 4. With continued slow improvement 1. Left lower extremity cellulitis-continue current parental antibiotics, IV vancomycin and ceftriaxone. Suspect that he will need continued treatment until more significant improvement though he does seem to be improving. When improving could consider switching to oral antibiotics that would cover potential MRSA. Blood cultures pending but negative x2 after 48 hours. We will continue with same pain control, elevation. Recheck labs in the morning. If continues to improve anticipate discharge tomorrow or more likely monday. Will send him home on linezolid 600 mg twice daily likely 2. Crohn's-will need to hold Humira while treating active infection. 3. Hypertension-much better controlled here in the hospital. Suspect related to patient not regularly taking his medications at home. Counseled him on compliance and long-term complications of hypertension. Patient is now back on all his outpatient antihypertensives including hydrochlorothiazide which was started today. Blood pressure is much better. 4. Depression-continue patient's usual meds, outpatient 5. VTE prophylaxis-Lovenox appropriate and ordered in addition to SCDs 6. Code status-full code in the event of a sudden cardiac or respiratory arrest which is not anticipated 7. Acute kidney injury-patient now back to normal. Will continue with oral hydration restart hydrochlorothiazide 8. Lower extremity edema left. Suspect all related to cellulitis. Vascular duplex shows no evidence of clot. This was done due to patient's history of travel and leg swelling and pain. Code status is full code Time spent with patient reviewing chart, discussing with the physician, nursing, meeting with patient, formulating a plan and documentation was 40 minutes Time-Based Coding :: Time-Based Coding :: [TOTAL MINUTES] spent with patient and on the chart (including review of chart, obtaining history, exam, reviewing outside data, placing orders, documenting exam and treatment plan, and counseling patient) on [DATE]. Quality VTE Deep Vein Thrombosis/Pulmonary Embolism Present on Admission: No
[2024-09-04 17:33] LABS: Vancomycin Trough 13.5 ug/mL (10-20)
[2024-09-04 20:00] VITALS: BP 135/79; PULSE 75; RESP 14; TEMP 36; O2SAT 95
[2024-09-04] MEDS: SODIUM CHLORIDE 0.9% FLUSH 10 ML IV (21:19)
[2024-09-05] MEDS: SODIUM CHLORIDE 0.9% FLUSH 10 ML IV ×2 (01:53→08:48)
[2024-09-05] MEDS: cefTRIAXone 2,000 MG in SODIUM CHLORIDE 0.9% 100 ML 200 MG IV (01:53)
[2024-09-05 05:19] LABS: BUN Creatinine Ratio 16.7 (6-22); Blood Urea Nitrogen 16 mg/dL (9-20); Calcium 9.1 mg/dL (8.4-10.2); Carbon Dioxide 29 mmol/L (22-32); Chloride 104 mmol/L (98-107); Estimated Glomerular Filt Rate > 60 mL/min (>60); Glucose 101 mg/dL (70-100); HEMOLYSIS < 15 (0-50); Potassium 4.1 mmol/L (3.4-5.1); Sodium 139 mmol/L (137-145)
[2024-09-05] MEDS: VANCOMYCIN 1,500 MG/300 ML PIGGYBACK 200 MG IV (05:25)
[2024-09-05 07:00] VITALS: BP 147/82; PULSE 77; RESP 18; TEMP 36.2; O2SAT 99
[2024-09-05] MEDS: lisinopriL 20 MG TABLET PO (08:44)
[2024-09-05] MEDS: SERTRALINE 50 MG TABLET 200 MG PO (08:45)
[2024-09-05] MEDS: hydroCHLOROthiazide 25 MG TABLET 12.5 MG PO (08:45)
[2024-09-05] MEDS: AMLODIPINE 5 MG TABLET 10 MG PO (08:45)
[2024-09-05] MEDS: ENOXAPARIN 40 MG/0.4 ML SYRINGE SUBCUT (08:46)
--- NOTE | 2024-09-05 09:36 | PM.DS.1 ---
History of Present Illness History of Present Illness Date Patient Seen: 09/05/24 Time Patient Seen: 09:36 Chief complaint: infection in lt leg Narrative: CC: L leg cellulitis Leg is feeling much better today beefy areas of skin are fading well. He is able to bear weight better, the extents are fading back from the previous borders. Feeling fine otherwise. Discharge Providers Provider Date of admission: 09/01/24 02:18 Discharge Date: 09/05/24 Primary care physician: Stephenie Shrestha MD Consults: 09/01/24 04:00 Consult to Dietitian, Adult Routine Comment: Reason For Exam: Weight loss >10lbs is past 3 months Discharge provider: Arturo Lal MD Summary Hospital Course Discharge Diagnosis: #Left lower extremity cellulitis #Crohn's #Hypertension #Depression Hospital Course: Mr Abreu is a pleasant gentleman with hx of Crohn's on Humira who developed an acute septic severe cellulitis infection of his left lower calf which required hospitalization and IV antibiotics. It took several days for improvement to occur which I attribute in part to his history of Humira use. By DoD the erythema was fading and shrinking he was able to ambulate on it much better and felt ready for discharge. He will take a course of oral linezolid and f/up with PCP in clinic. Status at Discharge Cognitive/behavioral status at discharge: at baseline, oriented Functional status at discharge: uses cane/walker Overall status at discharge: patient is progressing back to baseline Exam Vital Signs (past 8 hours): Oxygen Delivery Method Room Air Oxygen Flow Rate 0 Narrative Exam Narrative: laying in bed hanging out Resp Other: clear to auscultation bilaterally Cardio Other: regular rate and rhythm, s1, s2, well perfused with good dorsal pedal pulses bilaterally Skin Other: fading deep red beefy erythema circumferential on entire L timothy pretty much sparing knee and ankle - retreating from previous borders looks much better than yesterday. Neuro Other: [id number] Objective Labs 09/04/24 04:11 09/05/24 04:27 Labs: Laboratory Results - last 24 hr 09/04/24 09/05/24 16:35 04:27 Sodium 139 Potassium 4.1 Chloride 104 Carbon Dioxide 29 BUN 16 Creatinine 0.96 Estimated GFR > 60 BUN/Creatinine Ratio 16.7 Glucose 101 H Calcium 9.1 Vancomycin Trough 13.5 PFSH Medical History MRSA (methicillin resistant Staphylococcus aureus) Shingles rash (~04/2024) Crohn disease Essential hypertension Obstructive sleep apnea syndrome Depression Psoriasis Cellulitis of back Skin abscess Surgical History History of resection of terminal ileum Family History Family/Other Dementia Father Loud snoring Restless legs Obesity Hypertension Depression Anxiety Alcohol abuse Mother Loud snoring Sleep apnea Restless legs Obesity Hypertension Depression Anxiety Social History household members: spouse and children Smoking Status: Former smoker Discharge Assessment & Plan Assessment and Plan Assessment: 48-year-old male with a history of hypertension, psoriasis and Crohn's admitted for lower extremity cellulitis, hospital day 5, ready to go home #Left lower extremity cellulitis extensive and severe in LLE distal - improved after 5 days on iv vanc and rocephin - continue linezolid on discharge -pain manageable on otcs. #Crohn's Hold Humira while treating active infection. #Hypertension Controlled on home regimen with compliance confirmed #Depression stable continue home meds Dispo: home to f/up with PCP PCP: Fady DVT ppx: lovenox and SCDs diet: general Discharge Plan Discharge Plan Patient Disposition: Home Discharge orders & Medications Prescriptions: New linezolid 600 mg Tablet 600 mg PO BID Qty: 28 0RF Continued amlodipine 10 mg tablet 10 mg PO DAILY sertraline 100 mg tablet 200 mg PO DAILY hydrochlorothiazide 12.5 mg tablet 12.5 mg PO DAILY lisinopril 30 mg tablet 30 mg PO DAILY Discontinued adalimumab-adbm [adalimumab-adbm(CF) pen Crohns] 40 mg/0.4 mL Pen Injector Kit 40 mg SUBCUT Q2W Follow up/Referrals: Stephenie Shrestha MD [Primary Care Provider] - Visit Report/Discharge Packet Stand Alone Forms: Patient Portal/API, Stroke Signs & Symptoms Discharge Data Primary Care Provider: Stephenie Shrestha Quality VTE Deep Vein Thrombosis/Pulmonary Embolism Present on Admission: No
== END 2024-09-05 10:15 | disposition home or self-care (01) | DRG 603 ==
LOC: ED 02:16 → AC 03:02
PROVIDERS: Admitting Provider Internal Medicine; Emergency Provider Emergency Medicine; PCP Family Medicine; Referring Provider Emergency Medicine; Visit Provider Family Medicine
DX: L03.116 Cellulitis of left lower limb (principal); N17.9 Acute kidney failure, unspecified; K50.90 Crohn's disease, unspecified, without complications; I10 Essential (primary) hypertension; F32.A Depression, unspecified; L40.9 Psoriasis, unspecified; Z87.891 Personal history of nicotine dependence; Z86.14 Personal history of Methicillin resistant Staphylococcus aureus infection
CPT/HCPCS: 36415; 73590; 73610; 80048; 80053; 80202; 84145; 85025; 85651; 86140; 87040; 93971; 96365; 96375; 99284; 99285; J0696; J1650; J2270; J7050

== ENCOUNTER → 2024-11-15 19:11 | Outpatient (ROUT) | payer OTHER, SELFPAY ==
[2024-09-01 02:59] VITALS: BMI 38.0
[2024-11-15 20:01] LABS: Influenza A - CEPHEID Flu A NEGATIVE (NEGATIVE); Influenza B - CEPHEID Flu B NEGATIVE (NEGATIVE); Respiratory Syncytial Virus Negative (Negative)
[2024-11-15 20:05] LABS: COVID-19 CEPHEID 4-PLEX PCR Negative (Negative)
== END ==
PROVIDERS: PCP Family Medicine; Visit Provider Family Medicine
DX: R05.1 Acute cough (principal)
CPT/HCPCS: 0241U

== ENCOUNTER → 2025-07-21 12:51 | Outpatient (ROUT) | payer OTHER, SELFPAY ==
[2024-09-01 02:59] VITALS: BMI 38.0
[2025-07-21 13:32] LABS: Influenza A - CEPHEID Flu A NEGATIVE (NEGATIVE); Influenza B - CEPHEID Flu B NEGATIVE (NEGATIVE)
[2025-07-21 13:33] LABS: COVID-19 CEPHEID 4-PLEX PCR Negative (Negative)
== END ==
PROVIDERS: PCP Family Medicine; Visit Provider Family Medicine
DX: R06.2 Wheezing (principal); R05.1 Acute cough
CPT/HCPCS: 87637